=== PATIENT | female | born 1955 | race Caucasian/White ===

== ENCOUNTER 2022-08-30 11:57 | Emergency (ER) | payer OTHER, SELFPAY ==
[2022-08-30 12:02] VITALS: BP 189/92; PULSE 88; RESP 20; TEMP 36.3; O2SAT 93; BMI 43.9
--- NOTE | 2022-08-30 12:15 | CRLHL7_ITS ---
For Patients: As a result of the Cures Act, medical imaging exams and procedure reports are released immediately into your electronic medical record. You may view this report before your referring provider. If you have questions, please contact your health care provider. INDICATION: Shortness of breath TECHNIQUE: Chest 1 view. COMPARISON: None FINDINGS: The heart is normal in size. The pulmonary vasculature is within normal limits. The lungs are clear. Bones are unremarkable. IMPRESSION: No acute process. Dictated by Lindsey Lerma MD @ 08/30/2022 12:46:24 PM Dictated by: Lindsey Lerma MD @ 08/30/2022 12:46:40 (Electronically Signed)
[2022-08-30] MEDS: IPRAT-ALBUT 0.5-2.5 MG/3 ML NEB 1 NEB IH (12:21)
--- NOTE | 2022-08-30 12:39 | ED.GENADULT ---
HPI - General Adult General Date Seen: 08/30/22 Chief complaint: Cough Stated complaint: Difficulty breathing Time Seen by Provider: 08/30/22 12:04 Source: patient History of Present Illness HPI narrative: Patient is a 66-year-old woman who has had a cough for the past 4- 5 days, has developed some shortness of breath now as well. She says she a fever the 1st day, she had a Z-Larry laying around at home so she started that. She is on her last day of the Z-Larry and really has not helped. She is coughing up some sputum, has not had chest pain aside from that associated with coughing. No pleuritic chest pain. No unusual swelling in her legs. Her daughter was sick with some cold symptoms but they only lasted a day. She has not had any other ill exposures. She has taken 2 COVID test at home which were negative. She has a history of tobacco use but quit 9 years ago. She does not use any inhalers at baseline. Related Data Home Medications Medication Instructions Recorded Confirmed levothyroxine 13 mcg capsule 13 mcg PO QDAY 06/26/22 06/26/22 lisinopril 5 mg tablet 5 mg PO QDAY 06/26/22 06/26/22 pravastatin 10 mg tablet 10 mg PO QDAY 06/26/22 06/26/22 hydrochlorothiazide 25 mg tablet mg 08/30/22 Allergies Allergy/AdvReac Type Severity Reaction Status Date / Time erythromycin base Allergy Mild Hives Verified 06/26/22 10:32 penicillin V Allergy Mild Hives Verified 06/26/22 10:32 Sulfa drugs Allergy Mild Hives Uncoded 06/26/22 10:32 Review of Systems Status of ROS: Reports: 10 or more systems reviewed and unremarkable except as noted in History and below [facility] Social History Smoking Status: Former smoker Exam Narrative: Exam Narrative: Vital signs as noted above. In general, an alert, well-appearing patient. Head: Normocephalic, atraumatic. Eyes: Pupils are equal reactive. Extraocular movements are full. Conjunctivae are normal. ENT: Mucous membranes are moist. Throat is normal. Coarse upper airway congestion. Neck: Supple without lymphadenopathy. No stridor. Heart: Regular rate and rhythm. No murmur or rub. Lungs: Breath sounds are clear but decreased. Extremities: Well perfused. No edema. No calf tenderness. Pulses intact. Neurologic: Patient is alert and oriented to person and place. Speech is fluent. Face is symmetric. Moves all extremities equally. Affect: Normal. Skin: Warm and dry. Well perfused. Const: Vital Signs, click to edit/add: Vital Signs - 24 hr 08/30/22 12:02 Temperature 97.4 F L Pulse Rate [Pulse Oximeter] 88 Respiratory Rate 20 Blood Pressure [Ri ght Upper Arm] 189/92 H Pulse Oximetry 93 Oxygen Delivery Me thod Room Air Documenting provider has reviewed patient's vital signs: yes Course Course Hospital Course: One-view chest x-ray by my review is negative for infiltrate or other acute abnormality. Final radiology report Vital Signs Vital signs: Initial Vital Signs Temperature 97.4 F L 08/30/22 12:02 Temperature Source Temporal Artery Scan 08/30/22 12:02 Pulse Rate 88 08/30/22 12:02 Respiratory Rate 20 08/30/22 12:02 Blood Pressure 189/92 H 08/30/22 12:02 Blood Pressure Mean 124 08/30/22 12:02 Blood Pressure Position Sitting 08/30/22 12:02 Pulse Oximetry 93 08/30/22 12:02 Oxygen Delivery Method 08/30/22 12:02 Vital Signs Temperature 97.4 F L 08/30/22 12:02 Pulse Rate 88 08/30/22 12:02 Respiratory Rate 20 08/30/22 12:02 Blood Pressure 189/92 H 08/30/22 12:02 Pulse Oximetry 93 08/30/22 12:02 Oxygen Delivery Method 08/30/22 12:02 Temperature 97.4 F L 08/30/22 12:02 Pulse Rate 88 08/30/22 12:02 Respiratory Rate 20 08/30/22 12:02 Blood Pressure 189/92 H 08/30/22 12:02 Pulse Oximetry 93 08/30/22 12:02 Oxygen Delivery Method 08/30/22 12:02 Discharge Plan Discharge Clinical Impression: Bronchitis Patient Disposition: Home, Self-Care Condition: Improved Instructions: Acute Bronchitis (ED) Additional Instructions: Inhaler as prescribed. Prednisone x5 days. Follow-up with your primary doctor if not improving over the next couple of days, or if still symptomatic in a couple of weeks. Return at any time for worsening difficulty breathing or if fever returns. Bronchitis is viral, you do not need additional antibiotics. Prescriptions: No Action lisinopril 5 mg tablet 5 mg PO QDAY levothyroxine 13 mcg capsule 13 mcg PO QDAY pravastatin 10 mg tablet 10 mg PO QDAY hydrochlorothiazide 25 mg tablet Follow Up/Referrals: Jenny Hightower DO [Primary Care Provider] - Stand Alone Forms: [employer] Info Instructions
[2022-08-30] MEDS: predniSONE 20 MG TABLET 60 MG PO (13:38)
[2022-08-30] MEDS: ALBUTEROL SULFATE 2.5 MG/3 ML VIAL.NEB NEB (13:56)
== END 2022-08-30 13:50 | disposition home or self-care (01) ==
PROVIDERS: Emergency Provider Emergency Medicine; PCP Family Medicine
DX: J40 Bronchitis, not specified as acute or chronic (principal)
CPT/HCPCS: 71045; 94640; 99283; J7512

== ENCOUNTER 2024-03-23 07:36 | Emergency (ER) | payer OTHER, SELFPAY ==
[2024-03-23] VITALS (7 sets, daily range): BP systolic 146; BP diastolic 70; PULSE 81–92; RESP 20–24; TEMP 36.6; O2SAT 85–98; BMI 45.0
--- NOTE | 2024-03-23 07:52 | CRLHL7_ITS ---
For Patients: As a result of the Century Cures Act, medical imaging exams and procedure reports are released immediately into your electronic medical record. You may view this report before your referring provider. If you have questions, please contact your health care provider. Indication: Cough Technique: Chest 1 view Comparison: None Findings/Impression: Cardiovascular and mediastinum: Heart size and vasculature are normal in caliber and appearance. Lungs and pleural space: Lungs are clear. No sign of infiltrate or mass. No sign of pleural effusion. No pneumothorax. Bones and soft tissues: No acute findings. Dictated by Tucker Vazquez MD @ 03/23/2024 8:19:30 AM (Electronically Signed)
--- NOTE | 2024-03-23 08:03 | ED.GENADULT ---
HPI - General Adult General Chief complaint: Shortness of Breath/Dyspnea Stated complaint: Trouble breathing Time Seen by Provider: 03/23/24 07:42 History of Present Illness HPI narrative: Patient is a pleasant 68 year white female who has had a history of smoking for 40 years but quit 10 years ago, who presents with shortness of breath and a cough over the last few days. She has had a similar episode in August of 2022. She responded well to antibiotics and steroids. She has not been told she has asthma or emphysema. She did have an O2 sat in the 70% range when her daughter who is a nurse got there today to her house, but with an inhaler that she got from [place] it seemed to improved to the 90% range. She has had a nonproductive cough, no chest pain, no shortness of breath really at rest but was short of breath with exertion more, she has had no lower extremity swelling or edema, no bleeding or clotting problems . she is really quite active. She appears to have history of hypertension and hypercholesterolemia and hypothyroidism. Related Data Home Medications ?Medication ?Instructions ?Recorded ?Confirmed levothyroxine 13 mcg capsule 13 mcg PO QDAY 06/26/22 06/26/22 lisinopril 5 mg tablet 5 mg PO QDAY 06/26/22 06/26/22 pravastatin 10 mg tablet 10 mg PO QDAY 06/26/22 06/26/22 hydrochlorothiazide 25 mg tablet mg 08/30/22 Previous Rx's ?Medication ?Instructions ?Recorded albuterol sulfate 90 mcg/actuation 2 inh inhalation Q4-6H PRN #1 ea 03/23/24 breath activated powder inhaler doxycycline hyclate 100 mg capsule 100 mg PO BID #14 caps 03/23/24 prednisone 20 mg tablet 20 mg PO BID 5 days #10 tabs 03/23/24 Allergies Allergy/AdvReac Type Severity Reaction Status Date / Time erythromycin base Allergy Mild Hives Verified 03/23/24 09:29 penicillin V Allergy Mild Hives Verified 03/23/24 09:29 Sulfa drugs Allergy Mild Hives Uncoded 03/23/24 09:29 Review of Systems Status of ROS: Reports: 6 or more systems reviewed and unremarkable except as noted in History and below PFSH PFS Social History Smoking Status: Former smoker Non-prescribed substance use: denies use service: No Exam Narrative: Exam Narrative: Objective: Patient is afebrile O2 sat is 85% on room air Alert orient x3, noncyanotic, now on oxygen O2 sats in the mid 90% range HEENT is unremarkable no facial asymmetry Dry mucous membranes Neck is supple Chest diminished air exchange bilaterally no obvious rales or route wheezes Heart rhythm regular with 2/6 systolic murmur occasional ectopic beat Abdomen obese benign nontender Extremities are no edema neurologic nonfocal good peripheral perfusion noted. Const: Vital Signs, click to edit/add: Vital Signs - 24 hr 03/23/24 07:43 03/23/24 07:51 03/23/24 08:15 Temperature 97.9 F Pulse Rate Pulse Rate [Pulse Oximeter] 81 Respiratory Rate 24 20 Blood Pressure [Ri ght Upper Arm] 146/70 H Pulse Oximetry 85 L 85 L 98 Oxygen Delivery Me thod Room Air Nasal Cannula Nasal Cannula Oxygen Flow Rate 2 1 03/23/24 08:42 03/23/24 09:00 03/23/24 09:30 Temperature Pulse Rate 87 92 90 Pulse Rate [Pulse Oximeter] Respiratory Rate Blood Pressure [Ri ght Upper Arm] Pulse Oximetry 98 95 97 Oxygen Delivery Me thod Oxygen Flow Rate 03/23/24 10:00 Temperature Pulse Rate Pulse Rate [Pulse Oximeter] Respiratory Rate 20 Blood Pressure [Ri ght Upper Arm] Pulse Oximetry 93 Oxygen Delivery Me thod Room Air Oxygen Flow Rate Course Vital Signs Vital signs: Initial Vital Signs Temperature 97.9 F 03/23/24 07:43 Temperature Source Temporal Artery Scan 03/23/24 07:43 Pulse Rate 81 03/23/24 07:43 Respiratory Rate 24 03/23/24 07:43 Blood Pressure 146/70 H 03/23/24 07:43 Blood Pressure Mean 95 03/23/24 07:43 Blood Pressure Position Supine 03/23/24 07:43 Pulse Oximetry 85 L 03/23/24 07:43 Oxygen Delivery Method Room Air 03/23/24 07:43 Vital Signs Temperature 97.9 F 03/23/24 07:43 Pulse Rate 81 03/23/24 07:43 Respiratory Rate 03/23/24 07:43 Blood Pressure 146/70 H 03/23/24 07:43 Pulse Oximetry 85 L 03/23/24 07:43 Oxygen Delivery Method Room Air 03/23/24 07:43 Temperature 97.9 F 03/23/24 07:43 Pulse Rate 90 03/23/24 09:30 Respiratory Rate 20 03/23/24 10:00 Blood Pressure 146/70 H 03/23/24 07:43 Pulse Oximetry 93 03/23/24 10:00 Oxygen Delivery Method Room Air 03/23/24 10:00 Oxygen Flow Rate 1 03/23/24 08:15 Medications Administered Medications: Discontinued Medications Generic Name Dose Route Start Last Admin Trade Name Carlos PRN Reason Stop Dose Admin Albuterol/Ipratropium 1 neb 03/23/24 08:00 03/23/24 08:24 Iprat-Albut 0.5-2.5 Mg/3 Ml Neb IH 03/23/24 08:01 1 neb ONCE ONE Administration Doxycycline Hyclate 100 mg/ 100 mls @ 100 mls/hr 03/23/24 08:02 03/23/24 10:10 Sodium Chloride IVPB 03/23/24 08:03 Infused ONCE ONE Infusion Methylprednisolone Sodium Succinate 125 mg 03/23/24 08:00 03/23/24 08:24 Methylprednisolone Sod Succ 62.5 Mg/Ml (125) IVP 03/23/24 08:01 125 mg ONCE ONE Administration Medical Decision Making MDM Narrative Medical decision making narrative: [age] year white female was a long-term smoker but quit about a decade ago, presents with what sounds like a cough, progressive shortness of breath, COPD eggs type exacerbation. The patient will get a D-dimer, labs, electrolytes, chest x-ray, EKG, point of care troponin, IV fluids, IV steroids, IV antibiotic. Will get a DuoNeb as well. Disposition pending her clinical response in her O2 sat readings. Suspect this is more COPD like exacerbation with her cough and congestion and shortness of breath. She has had similar episodes in the past. She reports also she is not around any allergens or toxins or fumes or smoke. She is quite active goes to [employer] couple times a week. Addendum 9:46 a.m.: Patient's EKG shows normal sinus rhythm artifact present but no obvious ST T wave changes by my read. The patient's CT scan of the chest shows some bronchitis changes with mucosal thickening, but no dense consolidation consistent with pneumonia. I think a steroids, inhaler, antibiotics would be appropriate for home. Patient is feeling better after her nebulizer and treatments above. I think we can allow her to be discharged home if she can walk with a reasonable O2 sat . Addendum 10:00 a.m. the patient was able to maintain her O2 sats, she will be discharged home. Lab Data Labs: Lab Results 03/23/24 03/23/24 03/23/24 Range/Units 07:52 08:05 08:10 WBC 9.38 (4.50-11.00) K/uL RBC 5.42 H (4.00-5.20) m/uL Hgb 14.8 (12.0-16.0) gm/dL Hct 47.5 (33.0-51.0) % MCV 88 (80-100) fL MCH 27 (26-34) pg MCHC 31 L (32-36) gm/dL RDW Coeff of Sonia 15.1 (11.5-15.5) % Plt Count 304 (140-440) K/uL Neut % (Auto) 56.8 (42.0-72.0) % Lymph % (Auto) 31.9 (20-44) % [place] % (Auto) 8.6 (0.0-11.0) % Eos % (Auto) 1.8 (0.0-7.0) % Baso % (Auto) 0.6 (0.0-3.0) % Neut # (Auto) 5.32 (1.7-7.0) K/uL Lymph # (Auto) 2.99 H (0.90-2.90) K/uL [place] # (Auto) 0.80 (0.00-0.90) K/UL Eos # (Auto) 0.17 (0.00-0.50) K/uL Baso # (Auto) 0.06 (0.00-0.30) K/uL Abs Immat Gran (auto) 0.03 (0.00-0.30) K/uL Imm/Tot Granulo (auto) 0.3 % D-Dimer Quant (PE/DVT) 0.51 H (0.00-0.50) ug/ml VBG pH 7.394 (7.32-7.43) VBG pCO2 56 H (40-50) mmHG VBG pO2 < 30.1 (25-47) mmHG VBG HCO3 34 H (21-28) mmol/L Sodium 139 (135-149) mmol/L Potassium 3.7 (3.6-5.1) mmol/L Chloride 100 (96-114) mmol/L Carbon Dioxide 34 H (20-32) mmol/L Anion Gap 5 L (7-15) mEq/L BUN 22 (7-30) mg/dL Creatinine 0.8 (0.5-1.5) mg/dL Estimated Creat Clear 41.99 Estimated GFR 80 ml/min Glucose 96 (60-115) mg/dL Calcium 8.9 (8.4-10.6) mg/dL Total Bilirubin 0.8 (0.1-1.5) mg/dL Direct Bilirubin 0.4 (0.0-0.5) mg/dL AST 31 (12-35) U/L ALT 66 H (4-35) U/L Alkaline Phosphatase 78 (40-150) U/L C-Reactive Protein < 0.5 L (0.5-1.0) mg/dL NT-Pro-B Natriuret Pep 176 pg/mL Total Protein 7.1 (6.0-8.3) g/dL Albumin 4.3 (3.3-5.0) g/dL SARS-CoV-2 (PCR) Negative SARS-CoV-2 (Negative) Influenza Type A (PCR) Negative PCR FLU A (Negative) Influenza Type B (PCR) Negative PCR FLU B (Negative) RSV (PCR) Negative PCR RSV (Negative) POC Troponin I 0.00 L (0.01-0.04) ng/ml Discharge Plan Discharge Clinical Impression: Bronchitis, Acute bronchospasm Patient Disposition: Home w/ Parent or Adult Condition: Improved Additional Instructions: Rest, fluids, antibiotics and steroids and the inhaler as prescribed. Follow-up with your regular doctor next 2 3 days, return to the ED if problems or concerns breathing. Discharge Diet: Regular Prescriptions: New doxycycline hyclate 100 mg capsule 100 mg PO BID Qty: 14 0RF albuterol sulfate 90 mcg/actuation aerosol powdr breath activated 2 inh inhalation Q4-6H PRNQty: 1 0RF prednisone 20 mg tablet 20 mg PO BID 5 Days Qty: 10 0RF No Action lisinopril 5 mg tablet 5 mg PO QDAY levothyroxine 13 mcg capsule 13 mcg PO QDAY pravastatin 10 mg tablet 10 mg PO QDAY hydrochlorothiazide 25 mg tablet Follow Up/Referrals: Jenny Hightower DO [Primary Care Provider] - Stand Alone Forms: [employer] Info Instructions
[2024-03-23 08:13] LABS: HCO3 VBG 34 mmol/L (21-28); PCO2 VBG 56 mmHG (40-50); PO2 VBG < 30.1 mmHG (25-47); pH VBG 7.394 (7.32-7.43)
--- NOTE | 2024-03-23 08:13 | CRLHL7_ITS ---
For Patients: As a result of the Century Cures Act, medical imaging exams and procedure reports are released immediately into your electronic medical record. You may view this report before your referring provider. If you have questions, please contact your health care provider. Indication: Cough and shortness of breath Technique: Volumetric multidetector CT images of the chest were obtained after the administration of IV contrast. 95 cc Isovue 370 low osmolar intravenous contrast Comparison: None available. Findings: The thoracic inlet and thyroid gland are unremarkable. The thoracic aorta is nonaneurysmal. There is no central filling defect to suggest pulmonary embolism. There are enlarged mediastinal and hilar lymph nodes. There is mild central bronchial thickening with minimal mucoid impaction of lower lobe bronchi. There is minimal basilar atelectasis and parenchymal scar. There is no dense consolidation, effusion or pneumothorax. There is no evidence of pulmonary mass or suspicious pulmonary nodule. The partially visualized upper abdominal viscera are within normal limits. The thoracic vertebral body heights are grossly maintained with diffuse flowing anterior osteophytosis and syndesmophyte formation likely representing mild DISH versus bony ankylosis. No evidence of displaced fracture. Impression: [id number] central bronchial thickening with minimal mucoid impaction and reactive mediastinal and hilar lymph nodes likely representing mild bronchitis changes. No dense consolidation. Please note that all CT scans at this facility use dose modulation, iterative reconstruction, and/or weight-based dosing when appropriate to reduce radiation dose to as low as reasonably achievable. Dictated by Tre Craft MD @ 03/23/2024 9:38:55 AM (Electronically Signed)
[2024-03-23 08:23] LABS: Basophils Absolute Auto 0.06 K/uL (0.00-0.30); Basophils Percent Auto 0.6 % (0.0-3.0); Eosinophils Absolute Auto 0.17 K/uL (0.00-0.50); Eosinophils Percent Auto 1.8 % (0.0-7.0); Hematocrit 47.5 % (33.0-51.0); Hemoglobin* 14.8 gm/dL (12.0-16.0); Immature Granulocytes Abs Auto 0.03 K/uL (0.00-0.30); Immature Granulocytes Pct Auto 0.3 %; Lymphocytes Absolute Auto 2.99 K/uL (0.90-2.90); Lymphocytes Percent Auto 31.9 % (20-44); Mean Corpuscular HGB Conc 31 gm/dL (32-36); Mean Corpuscular Hemoglobin 27 pg (26-34); Mean Corpuscular Volume 88 fL (80-100); Monocytes Percent Auto 8.6 % (0.0-11.0); Neutrophils Absolute Auto 5.32 K/uL (1.7-7.0); Neutrophils Percent Auto 56.8 % (42.0-72.0); Platelet Count* 304 K/uL (140-440); RDW Coefficient of Variation % 15.1 % (11.5-15.5); Red Blood Count 5.42 m/uL (4.00-5.20); White Blood Count* 9.38 K/uL (4.50-11.00)
[2024-03-23] MEDS: DOXYCYCLINE HYCLATE 100 MG in 0.9 % SODIUM CHLORIDE Mini-bag 100 ML IVPB (08:24)
[2024-03-23] MEDS: IPRAT-ALBUT 0.5-2.5 MG/3 ML NEB 1 NEB IH (08:24)
[2024-03-23] MEDS: METHYLPREDNISOLONE SOD SUCC 62.5 MG/ML (125) 125 MG IVP (08:24)
[2024-03-23 08:30] LABS: Slide Review Reflex No
[2024-03-23 08:37] LABS: Albumin* 4.3 g/dL (3.3-5.0); Chloride* 100 mmol/L (96-114); Potassium* 3.7 mmol/L (3.6-5.1); Sodium* 139 mmol/L (135-149)
[2024-03-23 08:39] LABS: Creatinine* 0.8 mg/dL (0.5-1.5); Est. Creatinine Clearance* 41.99; Estimated Glomerular Filt Rate 80 ml/min
[2024-03-23 08:40] LABS: Alanine Aminotransferase* 66 U/L (4-35); Alkaline Phosphatase* 78 U/L (40-150); Anion Gap 5 mEq/L (7-15); Aspartate Amino Transferase* 31 U/L (12-35); Bilirubin Direct* 0.4 mg/dL (0.0-0.5); Bilirubin Total* 0.8 mg/dL (0.1-1.5); Blood Urea Nitrogen* 22 mg/dL (7-30); Carbon Dioxide* 34 mmol/L (20-32); Glucose* 96 mg/dL (60-115); Total Protein* 7.1 g/dL (6.0-8.3)
[2024-03-23 08:41] LABS: Calcium* 8.9 mg/dL (8.4-10.6); D Dimer Quantitative* 0.51 ug/ml (0.00-0.50)
[2024-03-23 08:53] LABS: C Reactive Protein* < 0.5 mg/dL (0.5-1.0); NT Pro B Type NatriureticPept* 176 pg/mL
[2024-03-23 08:59] LABS: PCR FLU A Negative PCR FLU A (Negative); PCR FLU B Negative PCR FLU B (Negative); PCR RSV Negative PCR RSV (Negative); SARS PCR* Negative SARS-CoV-2 (Negative)
--- NOTE | 2024-03-23 08:59 | RESP.RT ---
DuoNeb given with small volume nebulizer, Oxygen flow meter at 7 Lpm, with mouth piece. Tolerated well. Pre-BBS clear diminished both upper lobes, bases had very slight expiratory wheeze noted. HR 81/minute, VSS during treatment. Post-BBS upper lobes fair air movement, Left lower lobe no wheeze noted, Right base slight expiratory wheeze remained. Patient able to take larger breathe post treatment. Returned to [place] 1 Lpm with SaO2 98%.
== END 2024-03-23 10:09 | disposition home or self-care (01) ==
PROVIDERS: Emergency Provider Family Medicine; PCP Family Medicine
DX: J40 Bronchitis, not specified as acute or chronic (principal); J98.01 Acute bronchospasm
CPT/HCPCS: 36415; 71045; 71275; 80048; 80076; 82803; 83880; 84484; 85025; 85379; 86140; 87631; 93005; 94640; 94761; 99284; 99285; J2919; Q9967

== ENCOUNTER 2024-05-10 17:07 | Emergency (ER) | payer OTHER, SELFPAY ==
[2024-05-10 17:42] VITALS: BP 163/87; PULSE 83; RESP 18; TEMP 36.7; O2SAT 94
--- NOTE | 2024-05-10 18:36 | ED.GENADULT ---
HPI - General Adult General Chief complaint: Extremity Pain/Injury, Lower Stated complaint: L knee-pain getting unbearable even sitting Time Seen by Provider: 05/10/24 18:01 Source: patient Mode of arrival: wheelchair Limitations: no limitations History of Present Illness HPI narrative: 68-year-old female coming in today complaining of knee pain. Knee pain started approximately 2 months ago. She has been followed at [facility] and has received both steroid injections and gel injections. She states that her pain has continuously gotten worse instead of better. She did bump her anterior lower leg, which treated with antibiotics. This was 4 weeks ago. This appears to be healing well. Patient went to the orthopedic team again this week and was given cefadroxil for ?potential cellulitis and meloxicam for pain. Patient states that imaging was not recommended. She has had x-rays before and was told she had arthritis. Patient denies any systemic symptoms such as fevers, chills, nausea or vomiting. She denies any redness of the left lower extremity. She states however, that her pain is so significant now that she can not do her activities of daily living. Her daughter has to come over and help her. Pain is located over the medial knee, does not radiate up and down the leg. Rest use to make it better, but now she even has pain at rest. Pain is exacerbated with movement, specifically walking and weight-bearing. Related Data Home Medications ?Medication ?Instructions ?Recorded ?Confirmed levothyroxine 13 mcg capsule 13 mcg PO QDAY 06/26/22 06/26/22 lisinopril 5 mg tablet 5 mg PO QDAY 06/26/22 06/26/22 pravastatin 10 mg tablet 10 mg PO QDAY 06/26/22 06/26/22 hydrochlorothiazide 25 mg tablet mg 08/30/22 Previous Rx's ?Medication ?Instructions ?Recorded albuterol sulfate 90 mcg/actuation 2 inh inhalation Q4-6H PRN #1 ea 03/23/24 breath activated powder inhaler doxycycline hyclate 100 mg capsule 100 mg PO BID #14 caps 03/23/24 prednisone 20 mg tablet 20 mg PO BID 5 days #10 tabs 03/23/24 Allergies Allergy/AdvReac Type Severity Reaction Status Date / Time erythromycin base Allergy Mild Hives Verified 03/23/24 09:29 penicillin V Allergy Mild Hives Verified 03/23/24 09:29 Sulfa drugs Allergy Mild Hives Uncoded 03/23/24 09:29 Review of Systems Status of ROS: Reports: 10 or more systems reviewed and unremarkable except as noted in History and below [facility] Medical History Hypertension ?I10 - Essential (primary) hypertension (ICD-10) High cholesterol ?E78.00 - Pure hypercholesterolemia, unspecified (ICD-10) Hypothyroidism ?E03.9 - Hypothyroidism, unspecified (ICD-10) Arthritis ?M19.90 - Unspecified osteoarthritis, unspecified site (ICD-10) Social History Smoking Status: Former smoker Do you use any of these nicotine containing products: None Second hand tobacco smoke exposure: No How often do you have a drink containing alcohol: never AUDIT-C Alcohol total score: 0 Non-prescribed substance use: denies use service: No Exam Narrative: Exam Narrative: Obese, well-developed patient in mild distress, slightly anxious. Alert and oriented. Answers questions appropriately. Thoughts are goal oriented and rational. No tangential or magical thinking noted. Patient speaks in full sentences without needing to catch her breath. HEENT: Normocephalic atraumatic. Extraocular muscles are intact. Conjunctivae are moist without any icterus noted. Moist mucous membranes. Extremities: Right lower extremity is entirely normal. Left lower extremity does have trace edema from the knee all the way down to the ankle. Patient does not have significant tenderness to palpation of the knee, no significant tenderness to the lateral or medial joint lines. There is no redness or heat surrounding the knee or lower extremity. She does have a a healing scab of the anterior lower leg that does not appear infected and appears to be healing appropriately. Patient is able to flex and fully extend her knee, causes her discomfort but not enough to decrease her range of motion. She has no pain with compression of the patella. There is no valgus or varus laxity. Charmaine's is negative. There does appear to be a joint effusion. Skin: Well perfused without any obvious rashes. Const: Vital Signs, click to edit/add: Vital Signs - 24 hr 05/10/24 17:42 Temperature 98.0 F Pulse Rate [Left P ulse Oximeter] 83 Respiratory Rate 18 Blood Pressure [Ri ght Forearm] 163/87 H Pulse Oximetry 94 Oxygen Delivery Me thod Room Air Course Course ED Course: X-rays were done: Vital Signs Vital signs: Initial Vital Signs Temperature 98.0 F 05/10/24 17:42 Temperature Source Temporal Artery Scan 05/10/24 17:42 Pulse Rate 83 05/10/24 17:42 Pulse Rhythm Regular 05/10/24 17:42 Respiratory Rate 18 05/10/24 17:42 Blood Pressure 163/87 H 05/10/24 17:42 Blood Pressure Mean 112 H 05/10/24 17:42 Blood Pressure Position Sitting 05/10/24 17:42 Pulse Oximetry 94 05/10/24 17:42 Oxygen Delivery Method Room Air 05/10/24 17:42 Vital Signs Temperature 98.0 F 05/10/24 17:42 Pulse Rate 83 05/10/24 17:42 Respiratory Rate 18 05/10/24 17:42 Blood Pressure 163/87 H 05/10/24 17:42 Pulse Oximetry 94 05/10/24 17:42 Oxygen Delivery Method Room Air 05/10/24 17:42 Temperature 98.0 F 05/10/24 17:42 Pulse Rate 83 05/10/24 17:42 Respiratory Rate 18 05/10/24 17:42 Blood Pressure 163/87 H 05/10/24 17:42 Pulse Oximetry 94 05/10/24 17:42 Oxygen Delivery Method Room Air 05/10/24 17:42 Medical Decision Making MDM Narrative Medical decision making narrative: 68-year-old female with knee pain worsening for 2 months. Send the patient home on prednisone and Haines. Patient will follow-up with our orthopedic team. Discharge Plan Discharge Clinical Impression: Knee pain Patient Disposition: Home, Self-Care Condition: Stable Additional Instructions: Take all steroid as prescribed. Take pain medication as needed. Side effects of pain medication include constipation, sleepiness or dizziness. You will be provided the phone number to call our orthopedic team in the morning. Mention that you are scheduling an ER follow-up appointment. Medications sent to [facility]. Haines #8 tabs. Prednisone 40 mg daily x5 days. Prescriptions: No Action lisinopril 5 mg tablet 5 mg PO QDAY levothyroxine 13 mcg capsule 13 mcg PO QDAY pravastatin 10 mg tablet 10 mg PO QDAY hydrochlorothiazide 25 mg tablet doxycycline hyclate 100 mg capsule 100 mg PO BID Qty: 14 0RF albuterol sulfate 90 mcg/actuation aerosol powdr breath activated 2 inh inhalation Q4-6H PRNQty: 1 0RF prednisone 20 mg tablet 20 mg PO BID 5 Days Qty: 10 0RF Follow Up/Referrals: Jenny Hightower DO [Primary Care Provider] - Stand Alone Forms: [facility] Info Instructions
--- NOTE | 2024-05-10 18:40 | CRLHL7_ITS ---
For Patients: As a result of the Cures Act, medical imaging exams and procedure reports are released immediately into your electronic medical record. You may view this report before your referring provider. If you have questions, please contact your health care provider. INDICATION: Medial knee pain. TECHNIQUE: Left knee three views. COMPARISON: None. FINDINGS: No acute fracture or dislocation. Mild medial and patellofemoral compartment degenerative changes, with mild medial compartment narrowing. No additional osseous abnormality. Soft tissues as imaged are unremarkable. IMPRESSION: No acute osseous abnormality. Dictated by Drake Kan MD @ 05/10/2024 8:34:00 PM (Electronically Signed)
== END 2024-05-10 20:39 | disposition home or self-care (01) ==
PROVIDERS: Emergency Provider Family Medicine; PCP Family Medicine
DX: M25.562 Pain in left knee (principal)
CPT/HCPCS: 73562; 99283; 99284

== ENCOUNTER 2024-05-23 13:59 | Outpatient (CLI) | payer MEDICARE, SELFPAY ==
--- NOTE | 2024-05-23 14:45 | MR_ITS ---
[facility] [address] [facility] [address] Phone:?[phone] Fax:?[phone] Referring Physician Information: Jose Barnhart [address] [facility] [address] Phone:?[phone] Fax:?[phone] Patient:Beatris Downing D.O.B:?1955 Sex:?Female Phone:?[phone] [facility] MRN:?[id number] Exam Date:?05/23/2024 EXAM: MRI of the LEFT KNEE, without contrast CLINICAL HISTORY: Ongoing left knee pain. Evaluate for medial meniscal tear. COMPARISONS: Plain radiographs 05/12/2024 and 05/10/2024. TECHNICAL: MR sequences of the left knee: sagittals: PD, T2 FS coronals: PD, STIR, T2 axials: PD, T2 FS CONTRAST: None SEDATION: None FINDINGS: Bones: No fracture or suspicious bone marrow signal abnormality. Patellofemoral joint: Cartilage: Diffuse grade II and III chondromalacia over all portions of patella and extensive grade IV chondromalacia over the superior portions of the median patellar ridge and median patellar ridge-medial patellar facet junction with slight associated subchondral cystic changes. Retinacula: The medial and lateral retinacula are intact. Fat pads: The infrapatellar, quadriceps, and prefemoral fat pads are unremarkable. Knee joint: Effusion: Moderate left knee joint effusion. Popliteal cyst: None. Intra-articular bodies: None. Posteromedial corner: The semimembranosus and pes anserine tendons are intact. Medial compartment: Medial meniscus: There is full-thickness radial tear through the mid body of the medial meniscus measuring 1.0 cm in AP dimension. There is free edge fraying versus ill-defined free edge tearing of most of the posterior horn of the medial meniscus. Cartilage: There is diffuse grade III chondromalacia over most of the weightbearing portion of the medial femoral condyle. Lateral compartment: Lateral meniscus: Intact. Cartilage: 1.0 x 1.0 cm area of grade II chondromalacia over the posterior portion of the lateral tibial plateau. Ligaments: Anterior cruciate ligament: Intact. Posterior cruciate ligament: Intact. Medial collateral ligament: Intact. Posterior oblique ligament: Intact. Fibular collateral ligament: Intact. Posterolateral corner: The distal biceps femoris tendon, iliotibial band, popliteus tendon, popliteus muscle, popliteofibular ligament, and arcuate ligament are intact. Extensor mechanism: Patellar tendon: Intact. Quadriceps tendon: Intact. IMPRESSION: 1. Full-thickness radial tear through the mid body of the medial meniscus measuring 1.0 cm in AP dimension. Free edge fraying versus ill-defined free edge tearing of most of the posterior horn of the medial meniscus. 2. Diffuse grade III chondromalacia over most of the weightbearing portion of the medial femoral condyle. 3. Diffuse grade II and III chondromalacia over all portions of patella and extensive grade IV chondromalacia over the superior portions of the median patellar ridge and median patellar ridge-medial patellar facet junction with slight associated subchondral cystic changes. 4. 1.0 x 1.0 cm area of grade II chondromalacia over the posterior portion of the lateral tibial plateau. 5. Moderate left knee joint effusion. 6. No ligamentous injury or lateral meniscal tear of the left knee. RCB Electronically signed on 05/23/2024 4:04:00 PM by Billy Holden M.D.
== END 2024-05-23 14:00 | disposition home or self-care (01) ==
PROVIDERS: PCP Family Medicine; Visit Provider Physician Assistant Surgical
DX: M25.562 Pain in left knee (principal); S83.242A Other tear of medial meniscus, current injury, left knee, initial encounter; M94.262 Chondromalacia, left knee; M22.42 Chondromalacia patellae, left knee; M25.462 Effusion, left knee
CPT/HCPCS: 73721

== ENCOUNTER 2024-06-22 10:30 | Outpatient (RCR) | payer MEDICARE, SELFPAY ==
--- NOTE | 2024-05-30 15:14 | PT.OPEX ---
PT [place] Out[facility] Eval PT [facility] Outpatient Eval Start: 05/30/24 07:48 Freq: Status: Active Protocol: Document 05/30/24 07:48 ENM (Rec: 05/30/24 10:45 ENM [id number]) E-signed By Carmelina Jean, DPT Physical Therapy Outpatient Evaluation Insurance Information Recert Due Date 08/28/24 Insurance Name Medicare B Medical Diagnosis left knee pain Treating Diagnosis left knee pain, impaired gait, impaired balance, decreased knee strength, swelling Imaging Report Information Xray: moderate osteoarthritic change primarily medial compartment with joint space narrowing of 50-60%, osteophytosis medial femoral distal condyle MRI: 1. Full-thickness radial tear through the mid body of the medial meniscus measuring 1.0 cm in AP dimension. Free edge fraying versus ill- defined free edge tearing of most of the posterior horn of the medial meniscus. 2. Diffuse grade III chondromalacia over most of the weightbearing portion of the medial femoral condyle. 3. Diffuse grade II and III chondromalacia over all portions of patella and extensive grade IV chondromalacia over the superior portions of the median patellar ridge and median patellar ridge-medial patellar facet junction with slight associated subchondral cystic changes. 4. 1.0 x 1.0 cm area of grade II chondromalacia over the posterior portion of the lateral tibial plateau. 5. Moderate left knee joint effusion. 6. No ligamentous injury or lateral meniscal tear of the left knee. Referring MD Tong Subjective Subjective Patient presents to PT for complaint of left knee pain that started in February. Has had a corticosteroid injection February 2024 and viscosupplementation injection March 2024. Had no relief of symptoms with the injections. Her pains have continued to significant increase over the last couple of months. Was given tramadol which did not seem to help. Is taking tylenol and icing. The only thing that gave her relief is prednisone. She feels like there is swelling in the knee. She has been elevating the leg with a wedge and icing which helps while she does it but this doesn't last. She has a visit with Nicholas on . When it started: February Describes it as: significant pain Timing: pain all the time Location: medial knee pain and now anterior Irritability: high Severity: high Pain Comments at its best: 7/10 at its worse: 10/10 easing: sitting, tylenol, aggravating: all mobility Current Work Status Retired Objective Other/Pertinent Objective Knee AROM L knee 0-6-103 (stretch at end range knee flexion and pain at end range knee ext) R knee 2-0-110 Strength: Knee extensors: fair quad set very painful when performing Palpation/joint mobility: + for pain palpating medial joint line, tibial tubercle, patellar tendon Gait/balance: Patient ambulates with antalgic gait pattern, wide TAMAR Swelling: superior knee cap L 53 cm R 49 cm Joint line L 45 cm R 44 cm base of knee cap L 43 cm R 41. 5 Limited evaluation due to significant levels of pain Assessment Assessment/Impression Patient is a 68 year old female presenting with 3 month history of significant knee pain. Their primary complaint is of increasing significant levels of pain that were brought on without an injury. She has tried two injections and multiple medications with minimal pain relief. She had slight relief of pains with prednisone and has been able to bring the pains down to a moderate level with ibuprofen/ tylenol with icing. Recent MRI showed full thickness radial tear of medial meniscus as well as chondromalacia. Patient was very limited with her evaluation due to significant pain levels. She has significant knee pain with almost all mobility. Knee pain increases with knee extension and loading of the joint with ambulation. She displays global swelling of 2- 3 cm compared to contralateral side. She is very tender to palpation along her medial joint line. Pains improved some with KT taping and use of a 2WW to help offload her left knee. Patient has an appointment with Deny on of this week, will update POC depending on medical management plan. Eliana would greatly benefit from skilled PT to address impairments stated above in order to perform all functional mobility and household duties without significant discomfort or difficulty. Primary Functional Limitations all functional mobility Plan of Care Rehabilitation Potential Fair Rehabilitation Potential Comments Fair due to length of symptoms , extent of tearing in her meniscus and severity of symptoms Physical Therapy Goals In 7-9 visits: 1. Patient will be IND with HEP and self management of symptoms 2. Patient will improve pain free knee ROM to 0-0-110 for improved gait mechanics 3. Patient will perform x10 SLR with minimal discomfort to demonstrate improvements in quad strength for gait 4. Patient will make it through the day with 5/10 or less pain demonstrating an improvement in activity tolerance 5. Patient will perform her household duties without an increase in knee swelling to progress toward PLOF Coordination/Communication With Referral Source Treatment Plan/Direct Interventions Gait Training,Heat,Ice/Cold/ Vasopneumatic,Joint Mobilization,Manual Therapy, Neuromuscular Re-ed,Self-Care/ Home Management,Therapeutic Activities,Therapeutic Exercises Frequency/Duration 1x a week for 7-9 visits Patient Will Be Discharged From Therapy Completion of LTG(s), Independent w/HEP Evaluation Billing Untimed Code Treatment Minutes 21 Complexity High Certification Information Initial Certification Date 05/30/24 Ending Certification Date 08/28/24 Provider Signature Required Yes Provider Signature Shows Agreement With POC & Medical Necessity Physician NPI Number Write NPI# Here Physician Comment/Change : Physician Signature & Date Requested Please Sign/Date Here
== END 2024-09-13 10:15 | disposition home or self-care (01) ==
PROVIDERS: PCP Family Medicine; Visit Provider Physician Assistant Surgical
DX: M25.562 Pain in left knee (principal); R26.9 Unspecified abnormalities of gait and mobility; R26.81 Unsteadiness on feet; R60.9 Edema, unspecified; Z51.89 Encounter for other specified aftercare
CPT/HCPCS: 97110; 97140; 97163; 97530

== ENCOUNTER 2024-08-09 10:23 | Day surgery (SDC) | payer MEDICARE, SELFPAY ==
[2024-08-09] VITALS (21 sets, daily range): BP systolic 101–149; BP diastolic 45–92; PULSE 62–89; RESP 16; TEMP 35.7–36.9; O2SAT 91–98; BMI 47.7
[2024-08-09] MEDS: SODIUM CHLORIDE 0.9 % (FLUSH) 10 ML SYRINGE IVF (10:55)
[2024-08-09] MEDS: LACTATED RINGERS 1000 ML 1,000 ML 100 ML IV (10:55)
[2024-08-09] MEDS: CELECOXIB 200 MG CAPSULE PO (10:56)
[2024-08-09] MEDS: ACETAMINOPHEN 500 MG TABLET 1000 MG PO ×3 (10:56→23:29)
[2024-08-09] MEDS: OXYCODONE (CR) 10 MG TAB.ER.12H PO (10:56)
[2024-08-09] MEDS: fentaNYL 100 MCG/2 ML inj IVP (11:40)
[2024-08-09] MEDS: MIDAZOLAM HCL 1 MG/ML inj IVP (11:40)
--- NOTE | 2024-08-09 12:02 | SUR.PREOP ---
TIME?OUT:?1140 PT/RN/MDA?VERIFICATION?OF?SURGICAL?SITE,?PROCEDURE,?AND?CONSENT OBTAINED?PRIOR?TO?INVASIVE?PROCEDURE.
[2024-08-09] MEDS: CEFAZOLIN 2 GM INJ IVP (12:15)
[2024-08-09] MEDS: TRANEXAMIC ACID 100 MG/ML INJ 1000 MG IV (12:20)
--- NOTE | 2024-08-09 12:36 | W.PM.NB ---
Nerve Block Nerve Block Time Seen by Provider: 11:45 Date Seen: 08/09/24 Type of block requested by surgeon for post-operative analgesia: adductor canal Side: left Time out performed: Yes Verification of patient name: Yes Verification of date of : Yes Site marking: site marked Name of person performing procedure: Jeanmarie Continuous monitoring Was continuous monitoring of O2 sat, B/P, cardiac nurse specialist, recorded every 15 minutes?: Yes Procedure Checklist: sterile prep, needles and gloves Ultrasound guided. Images saved: Yes Medications given in 5ml increments after negative aspiration: Marcaine %: 0.25 mL: 15 Needle gauge: 20 Precedex (mcg): 25 Patient tolerated procedure well: Yes Block Charges Block Charge (with Pro Fee): Femoral Nerve Use of Ultrasound Machine for Block: Yes- US Guidance/pain block
--- NOTE | 2024-08-09 12:37 | W.PM.NB ---
Nerve Block Nerve Block Time Seen by Provider: 11:45 Date Seen: 08/09/24 Type of block requested by surgeon for post-operative analgesia: geniculars Side: left Time out performed: Yes Verification of patient name: Yes Verification of date of : Yes Site marking: site marked Name of person performing procedure: Jeanmarie Continuous monitoring Was continuous monitoring of O2 sat, B/P, plumber cub, recorded every 15 minutes?: Yes Procedure Checklist: sterile prep, needles and gloves Ultrasound guided. Images saved: Yes Medications given in 5ml increments after negative aspiration: Marcaine %: 0.25 mL: 9 Needle gauge: 25 Patient tolerated procedure well: Yes Block Charges Block Charge (with Pro Fee): Genicular Nerve Block
--- NOTE | 2024-08-09 12:37 | W.ANESCHARGE ---
Anesthesia Charges Start Date/Time Anesthesia Start Date: 08/09/24 Anesthesia Start Time: 12:10 Stop Date/Time Anesthesia Stop Date: 08/09/24 Anesthesia Stop Time: 14:49
--- NOTE | 2024-08-09 14:13 | CRLHL7_ITS ---
For Patients: As a result of the Cures Act, medical imaging exams and procedure reports are released immediately into your electronic medical record. You may view this report before your referring provider. If you have questions, please contact your health care provider. Indication: Postop Technique: Two views left knee Findings/Impression: Hardware from a left total knee arthroplasty is in satisfactory position. Bone alignment is normal. No sign of acute fracture. Postop changes are within normal limits. Dictated by George Mendoza MD @ 08/10/2024 8:08:13 AM (Electronically Signed)
--- NOTE | 2024-08-09 14:16 | PM.ORPRC ---
Procedure Note Date of procedure: 08/09/24 Procedure: PREOPERATIVE DIAGNOSIS: Left knee osteoarthritis POSTOPERATIVE DIAGNOSIS: Left knee osteoarthritis NAME OF OPERATION: Left total knee arthroplasty SURGEON: Arjun Marrufo MD TRANSPORTATION AGENT: HUGO Johnson ANESTHESIA: Spinal ESTIMATED BLOOD LOSS: 0 mL COMPLICATIONS: None SPECIMENS: None DRAINS: None PREOPERATIVE ANTIBIOTICS: Ancef 2 grams, antibiotic impregnated cement IMPLANTS: 1. J[employer]J Attune revision CRS #4 posterior stabilized femur, 14 mm x 80 mm cemented stem 2. #3 revision CRS fixed-bearing tibia, 14 mm x 50 mm cemented stem 3. #6 posterior stabilized, 5 mm fixed-bearing polyethylene 4. 38 patella INDICATIONS: The patient is a 68-year-old with a longstanding history of severe, unrelenting left knee pain secondary to end-stage (grade IV) left knee osteoarthritis. Despite appropriate nonoperative management, including activity modification, anti-inflammatories, [id number]-usl-[id number] pain medication, bracing, physical therapy, and injections they continue to have pain and disability. Operative intervention was offered. The risks, benefits and expected outcomes were discussed in detail. These included but were not limited to: Infection, bleeding, injury to blood vessel or nerve, venous thromboembolism. All questions were answered to their satisfaction. Use of an clinical education assistant was necessary throughout the case for patient positioning and safety, soft tissue retraction, and closure. A modifier 22 should be added to this case patient's weight of 118 kg with a BMI of 48 made the exposure difficult. Because of the obesity, stemmed components were used in an attempt to reduce the risk of aseptic loosening. These factors added time and cost to complete the case. PROCEDURE: Spinal anesthesia was administered. The patient was placed supine on the operating table. The clinical education assistant made sure the patient was positioned appropriately. The lower extremity was prepped and draped in the usual sterile fashion. The limb was exsanguinated with the Blayne bandage. The pneumatic tourniquet was inflated to 300 mmHg. A standard anterior incision was made with the knee in flexion. Subcutaneous dissection was sharply taken through fascial layer #1. Full-thickness medial and lateral flaps were elevated. The clinical education assistant retracted the soft tissues and protected them throughout the case. A standard subvastus approach was made. The patella was subluxed. The infrapatellar fat pad was debrided. The menisci and cruciate ligaments were sharply d?brided. Marginal osteophytes were d?brided with the rongeur. The drill was used to penetrate the femoral canal. The canal was aspirated and irrigated with pulse lavage. The intramedullary femoral guide was placed for a 5-degree valgus cut, removing 10 mm off the distal femur. The saw was used to make the cut. Whitesides line and the trans epicondylar axis were marked. The femoral sizing guide was pinned onto the distal femur. Three degrees of external rotation nicely parallels the transepicondylar axis. Pins were placed for posterior referencing. The four-in-one cutting guide was pinned onto the distal femur. The anterior, posterior, and chamfer cuts were made. The clinical education assistant protected the collateral ligaments. The revision trial was placed. The box cuts were made. The drill was used x2. The stemmed, boxed trial was placed and was an excellent fit. Attention was then turned to the proximal tibia. The extramedullary tibial guide was placed for a neutral varus/valgus cut with 5 degrees of posterior slope, removing 2 mm based off the medial tibial surface. The clinical education assistant protected the collateral ligaments and the neurovascular bundle. The saw was used to make the cut. Trial components were placed. The knee was nicely balanced in both flexion and extension. The trial components were removed. The tray was placed in appropriate rotation, parallel to our tibial cutting pins. It was pinned by the clinical education assistant and the drill x2 was used. The stemmed tibial trial was placed. The punch was used. The tray was removed. The punch was used again. Attention was then turned to the patella. [place] patellar thickness was 22 mm. The lobster claw resection guide was used with the 9.5 mm heri. The saw was used to make the cut. Drill holes were made by the clinical education assistant. The trial was placed and was an excellent fit. Cancellous surfaces were irrigated with pulse lavage and thoroughly dried by the clinical education assistant. We cemented the tibial component, then the femoral component. We impacted the 5 mm polyethylene onto the tibial tray. The knee was brought into full extension. We then cemented the patellar component. Excessive cement was removed. The cement was allowed to harden. The knee was taken through a range of motion and was found to be nicely balanced in both flexion and extension. The patella tracks centrally. The clinical education assistant did a three minute dilute Betadine solution soak. The clinical education assistant irrigated the wound with 3 liters of normal saline via pulse lavage. The clinical education assistant reapproximated the extensor mechanism with #1 Vicryl in an interrupted [id number] fashion. The clinical education assistant then ran the extensor mechanism with a #1 PDO Stratafix. The clinical education assistant closed the subcutaneous tissues with a 3-0 Stratafix and the skin with a running 3-0 Stratafix in a subcuticular fashion. Glue was used to seal the skin. The clinical education assistant placed a dry dressing. Sponge and needle counts were correct x2. The patient tolerated the procedure well. There were no apparent complications. They were carefully transferred to the hospital bed and taken to the postanesthesia care unit in satisfactory condition. PLAN: The patient will be mobilized with physical therapy. Aspirin will be used for DVT prophylaxis. They will be discharged to home once medically appropriate.
--- NOTE | 2024-08-09 14:50 | W.ANESCHARGE ---
Anesthesia Charges Start Date/Time Anesthesia Start Date: 08/09/24 Anesthesia Start Time: 12:10 Stop Date/Time Anesthesia Stop Date: 08/09/24 Anesthesia Stop Time: 14:49
--- NOTE | 2024-08-09 15:11 | P.IMCN_ITS ---
Date of Consult Consult date: 08/09/24 Primary Care Provider: Franchesca Nichole DO Consult Narrative Narrative: HOSPITALIST CONSULT Procedure: NAME OF OPERATION: Left total knee arthroplasty SURGEON: Arjun Marrufo MD ANESTHESIA: Spinal ESTIMATED BLOOD LOSS: 0 mL COMPLICATIONS: None The hospital medicine team was asked by the orthopedic surgery team to manage the patient's hypertension, hypothyroidism, morbid obesity, prediabetes. There have been no perioperative complications. I have updated and reviewed the active medical problems, past medical history, past surgical history, social history, allergies and medications in our electronic EMR. This includes a cross reference to care everywhere in [facility] and with [facility] databases. PHYSICAL EXAM: CODE STATUS: FULL CODE CONSTITUTIONAL: Conversive, good historian. A/O. Knows setting and context. VITAL SIGNS: see record. HEENT: Normocephalic, atraumatic. PERRL, EOMI, conjunctivae pink, no scleral icterus. Ears and nose externally normal. Pharynx normal. NECK: No JVD. No carotid bruit, no thyromegaly, no adenopathy. CHEST: Clear to auscultation bilaterally HEART: S1 and S2 normal. ABDOMEN: Flat, soft, nontender. Normal bowel sounds. Moderately obese. EXTREMITIES: No edema. MUSCULOSKELETAL: Left knee is in surgical dressing postoperatively. There is no obvious hematoma or bleeding. NEURO: Cranial nerves intact. Mentation normal. Normal affect. SKIN: No rashes, petechiae, concerning changes PSYCHIATRIC: Mentation normal. INVESTIGATIONS: EMR Reviewed; Pre-OP Reviewed DISPOSITION: DVT: Agree with Ortho team decision, aspirin 81 mg b.i.d. GI: PO intake [facility] Medical History (Updated 08/09/24 @ 15:29 by Sara Wells MD) Obesity ?E66.9 - Obesity, unspecified (ICD-10) Osteoarthritis of carpometacarpal (CMC) joint of left thumb ?M18.12 - Unilateral primary osteoarthritis of first carpometacarpal joint, left hand (ICD-10) Hypertension ?I10 - Essential (primary) hypertension (ICD-10) High cholesterol ?E78.00 - Pure hypercholesterolemia, unspecified (ICD-10) Hypothyroidism ?E03.9 - Hypothyroidism, unspecified (ICD-10) Arthritis ?M19.90 - Unspecified osteoarthritis, unspecified site (ICD-10) Surgical History (Updated 08/09/24 @ 18:53 by Sara Wells MD) Status post left knee replacement ?Z96.652 - Presence of left artificial knee joint (ICD-10) History of cholecystectomy (~1999) ?Z90.49 - Acquired absence of other specified parts of digestive tract (ICD- 10) History of hysterectomy (~1990) ?Z90.710 - Acquired absence of both cervix and uterus (ICD-10) History of appendectomy (~1959) ?Z90.49 - Acquired absence of other specified parts of digestive tract (ICD- 10) History of tonsillectomy (~1967) ?Z90.89 - Acquired absence of other organs (ICD-10) Social History (Updated 06/13/24 @ 12:57 by Katya Tello ~ [facility], [facility]) Narrative: former smoker 11/12/2014 What is your current living situation?: I presently have a place to live Problems where you live: no known problems In the past 12 months, utilities in danger of being shut off: no In past 12 months, lack of transportation kept you from medical appts, meetings, work, or getting things needed for daily living: no In the past 12 mos, have been you worried that your food would run out before you had money to buy more?: never true In the past 12 mos, the food you bought just didn't last and you didn't have money to buy more?: never true Smoking Status: Former smoker What tobacco products do you use: cigarettes Smoking quit date/years: <= 15 years ago Do you use any of these nicotine containing products: None Second hand tobacco smoke exposure: No How often do you have a drink containing alcohol: 2-4 times a month How many standard drinks containing alcohol do you have on a typical day: 1 or 2 How often do you have six or more drinks on one occasion: Never AUDIT-C Alcohol total score: 2 Non-prescribed substance use: denies use How often does anyone, including family, friends and others, physically hurt you : never How often does anyone, including family, friends and others, insult or talk down to you: never How often does anyone, including family, friends and others, threaten you with harm: never How often does anyone, including family, friends and others, scream or curse at you: never service: No Meds Home Medications and Allergies Home Medications ?Medication ?Instructions ?Recorded ?Confirmed ?Type hydrochlorothiazide 25 mg tablet 25 mg PO DAILY 08/30/22 08/09/24 History levothyroxine 100 mcg tablet 100 mcg PO DAILY 05/12/24 08/09/24 History lisinopril 30 mg tablet 30 mg PO DAILY 05/12/24 08/09/24 History pravastatin 40 mg tablet 40 mg PO HS 05/12/24 08/09/24 History calcium carbonate (Calcium 600) 600 mg PO BID 08/09/24 08/09/24 History cholecalciferol (vitamin D3) 50 50 mcg PO DAILY 08/09/24 08/09/24 History mcg (2,000 unit) capsule glucosamine 500 mg-msm 500 1 tab PO BID 08/09/24 08/09/24 History mg-hyaluronic acid 1.1 mg tablet Allergies Allergy/AdvReac Type Severity Reaction Status Date / Time erythromycin base Allergy Mild Hives Verified 08/09/24 10:43 penicillin V Allergy Mild Hives Verified 08/09/24 10:43 Sulfa (Sulfonamide Allergy Mild Hives Verified 08/09/24 10:43 Antibiotics) amoxicillin Allergy Hives Verified 08/09/24 10:43 Exam Const: Vital Signs, click to edit/add: Vital Signs - 24 hr 08/09/24 11:00 08/09/24 11:40 08/09/24 11:45 Temperature 98.4 F Pulse Rate 89 80 82 Respiratory Rate 16 16 16 Blood Pressure 149/77 H 146/92 H 140/80 H Pulse Oximetry 95 96 98 Oxygen Delivery Me thod Room Air Room Air Nasal Cannula Oxygen Flow Rate 2 08/09/24 12:02 08/09/24 14:45 08/09/24 14:50 Temperature 97.3 F L Pulse Rate 79 78 73 Respiratory Rate 16 16 16 Blood Pressure 128/91 H 103/76 115/73 Pulse Oximetry 98 95 95 Oxygen Delivery Me thod Nasal Cannula Room Air Room Air Oxygen Flow Rate 2 08/09/24 14:55 08/09/24 15:00 08/09/24 15:05 Temperature Pulse Rate 70 67 65 Respiratory Rate 16 16 16 Blood Pressure 104/72 128/81 126/77 Pulse Oximetry 94 94 95 Oxygen Delivery Me thod Room Air Room Air Room Air Oxygen Flow Rate Assessment and Plan Assessment and plan (1) Status post left knee replacement: Problem comment: 08/09/24, Dr. Marrufo. Hospital medicine team is happy to follow this patient through to discharge. We agree with aspirin 81 mg b.i.d. for VTE prophylaxis. We expect a routine postoperative course. Status: Acute (2) Hyperlipidemia: Problem comment: Statin therapy Status: Acute (3) Obesity: Problem comment: BMI 48 Status: Acute (4) Hypertension: Problem comment: Home regimen includes lisinopril, 30 mg and hydrochlorothiazide 25 mg. Status: Acute (5) Hypothyroidism: Problem comment: Daily levothyroxine 100 mcg will be continue Status: Acute
[2024-08-09] MEDS: HYDROmorphone 0.5 mg/0.5 ml inj IVP ×2 (15:52→16:48)
[2024-08-09] MEDS: LACTATED RINGERS 1000 ML 1,000 ML 75 ML IV (16:05)
[2024-08-09] MEDS: CEFAZOLIN 2 GM in 0.9 % SODIUM CHLORIDE Mini-bag 100 ML IVPB (18:19)
[2024-08-09] MEDS: OXYCODONE 5 MG TABLET PO ×2 (19:42→23:23)
[2024-08-09] MEDS: SENNOSIDES 1 TAB TABLET 2 TAB PO (21:07)
[2024-08-09] MEDS: ASPIRIN 81 MG TABLET EC PO (21:08)
[2024-08-09] MEDS: PRAVASTATIN SODIUM 20 MG TABLET 40 MG PO (21:08)
--- NOTE | 2024-08-09 23:34 | PC.NURSE ---
PT VSS. A&O x4. Adv. diet to regular and tolerated well. SBA with one, walker and gait belt. Voiding fine. IV in left hand saline locked. Drinking oral fuids fine. Rated pain between 3-7/10 throughout shift.
[2024-08-10 01:45] VITALS: BP 133/70; PULSE 84; RESP 20; TEMP 37.1; O2SAT 93
[2024-08-10] MEDS: OXYCODONE 5 MG TABLET PO ×4 (01:45→11:54)
[2024-08-10] MEDS: CEFAZOLIN 2 GM in 0.9 % SODIUM CHLORIDE Mini-bag 100 ML IVPB (01:45)
[2024-08-10] MEDS: ACETAMINOPHEN 500 MG TABLET 1000 MG PO ×2 (06:19→11:54)
[2024-08-10] MEDS: LEVOTHYROXINE 100 MCG TABLET PO (06:20)
--- NOTE | 2024-08-10 06:38 | PC.NURSE ---
Addendum entered by Antonia Roberson 08/10/24 06:44: Scheduled Expanse down time from [id number] during shift ([id number]) Original Note: Pt alert and oriented x3. Afebirle. Pt reports 6-8/10 pain in left knee, pain managed with scheduled and PRN medications. Pt's left knee dressing is CDI. Pt is up SBA with walker, tolerating a regular diet and voiding.
[2024-08-10 07:02] LABS: Basophils Absolute Auto 0.03 K/uL (0.00-0.30); Basophils Percent Auto 0.4 % (0.0-3.0); Eosinophils Absolute Auto 0.32 K/uL (0.00-0.50); Eosinophils Percent Auto 3.8 % (0.0-7.0); Hematocrit 40.6 % (33.0-51.0); Hemoglobin* 13.4 gm/dL (12.0-16.0); Immature Granulocytes Abs Auto 0.02 K/uL (0.00-0.30); Immature Granulocytes Pct Auto 0.2 %; Lymphocytes Percent Auto 17.4 % (20-44); Mean Corpuscular HGB Conc 33 gm/dL (32-36); Mean Corpuscular Hemoglobin 29 pg (26-34); Mean Corpuscular Volume 89 fL (80-100); Monocytes Percent Auto 6.1 % (0.0-11.0); Neutrophils Percent Auto 72.1 % (42.0-72.0); Platelet Count* 274 K/uL (140-440); RDW Coefficient of Variation % 14.8 % (11.5-15.5); Red Blood Count 4.59 m/uL (4.00-5.20); White Blood Count* 8.37 K/uL (4.50-11.00)
[2024-08-10 07:05] LABS: Slide Review Reflex No
[2024-08-10 07:21] LABS: Potassium* 3.8 mmol/L (3.6-5.1); Sodium* 135 mmol/L (135-149)
[2024-08-10 07:23] LABS: INR 0.97 (0.91-1.10); Prothrombin Time 13.5 Seconds
[2024-08-10 07:24] LABS: Blood Urea Nitrogen* 18 mg/dL (7-30); Creatinine* 0.7 mg/dL (0.5-1.5); Est. Creatinine Clearance* 41.99; Estimated Glomerular Filt Rate 94 ml/min
[2024-08-10 08:10] VITALS: BP 144/71; PULSE 93; RESP 16; TEMP 37.1; O2SAT 86
[2024-08-10 08:15] VITALS: O2SAT 86
[2024-08-10] MEDS: ASPIRIN 81 MG TABLET EC PO (08:24)
[2024-08-10] MEDS: SENNOSIDES 1 TAB TABLET 2 TAB PO (08:24)
[2024-08-10 08:38] VITALS: O2SAT 95
--- NOTE | 2024-08-10 09:07 | PM.ORPN ---
Subjective Subjective Time Seen by Provider: 07:40 Date Seen: 08/10/24 Principal diagnosis: Status post left knee replacement Interval history: Eliana is comfortable this morning. She will discharge to home today. Ortho Exam Narrative Exam Narrative: Alert and oriented x3. Patient is in no acute distress. Converses without labored breathing. Hearing is grossly intact. Ambulates with a walker. Examination of the left knee shows dressing is intact. No erythema or warmth or sign of infection. CMS intact left lower extremity. She is able to straight leg raise. Calves are soft and nontender. Soft tissue edema is present. Mild hematoma anterior knee. Const Vital Signs, click to edit/add: Vital Signs - 24 hr 08/09/24 11:00 08/09/24 11:40 08/09/24 11:45 Temperature 98.4 F Pulse Rate 89 80 82 Pulse Rate [Pulse Oximeter] Respiratory Rate 16 16 16 Blood Pressure 149/77 H 146/92 H 140/80 H Blood Pressure [Right Arm] Pulse Oximetry 95 96 98 Oxygen Delivery Method Room Air Room Air Nasal Cannula Oxygen Flow Rate 2 08/09/24 12:02 08/09/24 14:45 08/09/24 14:50 Temperature 97.3 F L Pulse Rate 79 78 73 Pulse Rate [Pulse Oximeter] Respiratory Rate 16 16 16 Blood Pressure 128/91 H 103/76 115/73 Blood Pressure [Right Arm] Pulse Oximetry 98 95 95 Oxygen Delivery Method Nasal Cannula Room Air Room Air Oxygen Flow Rate 2 08/09/24 14:55 08/09/24 15:00 08/09/24 15:05 Temperature Pulse Rate 70 67 65 Pulse Rate [Pulse Oximeter] Respiratory Rate 16 16 16 Blood Pressure 104/72 128/81 126/77 Blood Pressure [Right Arm] Pulse Oximetry 94 94 95 Oxygen Delivery Method Room Air Room Air Room Air Oxygen Flow Rate 08/09/24 15:10 08/09/24 15:22 08/09/24 15:30 Temperature 97.2 F L 96.3 F L 96.4 F L Pulse Rate 67 65 62 Pulse Rate [Pulse Oximeter] Respiratory Rate 16 16 16 Blood Pressure 116/63 116/52 L 115/63 Blood Pressure [Right Arm] Pulse Oximetry 95 94 94 Oxygen Delivery Method Room Air Room Air Oxygen Flow Rate 2 08/09/24 15:45 08/09/24 16:00 08/09/24 16:15 Temperature 96.6 F L 96.6 F L 96.6 F L Pulse Rate 62 69 69 Pulse Rate [Pulse Oximeter] Respiratory Rate 16 16 16 Blood Pressure 114/83 123/69 136/80 Blood Pressure [Right Arm] Pulse Oximetry 94 93 93 Oxygen Delivery Method Room Air Room Air Room Air Oxygen Flow Rate 08/09/24 16:30 08/09/24 17:31 08/09/24 18:00 Temperature 97.1 F L 97.1 F L 96.8 F L Pulse Rate 65 65 65 Pulse Rate [Pulse Oximeter] Respiratory Rate 16 16 16 Blood Pressure 101/71 122/63 119/45 L Blood Pressure [Right Arm] Pulse Oximetry 93 92 92 Oxygen Delivery Method Room Air Room Air Room Air Oxygen Flow Rate 08/09/24 19:00 08/09/24 20:00 08/09/24 23:19 Temperature 96.8 F L 96.8 F L 98.0 F Pulse Rate 65 65 Pulse Rate [Pulse Oximeter] 81 Respiratory Rate 16 16 16 Blood Pressure 117/60 132/72 Blood Pressure [Right Arm] 109/66 Pulse Oximetry 92 91 93 Oxygen Delivery Method Room Air Room Air Room Air Oxygen Flow Rate 08/09/24 23:19 08/10/24 01:45 08/10/24 08:10 Temperature 98.8 F 98.7 F Pulse Rate Pulse Rate [Pulse Oximeter] 84 93 Respiratory Rate 16 20 16 Blood Pressure Blood Pressure [Right Arm] 133/70 144/71 H Pulse Oximetry 93 93 86 L Oxygen Delivery Method Room Air Room Air Room Air Oxygen Flow Rate 08/10/24 08:38 Temperature Pulse Rate Pulse Rate [Pulse Oximeter] Respiratory Rate Blood Pressure Blood Pressure [Right Arm] Pulse Oximetry 95 Oxygen Delivery Method Nasal Cannula Oxygen Flow Rate 2 Assessment and Plan Assessment and plan (1) Status post left knee replacement: Problem details: 08/09/24, Dr. Marrufo. Hospital medicine team is happy to follow this patient through to discharge. We agree with aspirin 81 mg b.i.d. for VTE prophylaxis. We expect a routine postoperative course. Status: Acute Assessment and Plan: Plan for discharge is today to home if they meet discharge criteria. DVT prophylaxis includes aspirin 81 mg twice daily x1 month, Compression stockings as needed for swelling. Frequent ambulation, every hour throughout the day. Remove dressing in 1 week. Observe wound and phone Orthopedics with any questions or concerns Return to clinic in 1 week for a wound check Return to clinic in 6 weeks with surgeon Minimize narcotic use. Wean off and discontinue soon as possible. Activities as tolerated. No strenuous activity. Outpatient physical therapy as scheduled. Ice and elevate the operative extremity. No restriction on ice.
[2024-08-10 10:59] VITALS: BP 139/92; PULSE 94; RESP 20; TEMP 36.6; O2SAT 92
--- NOTE | 2024-08-10 11:00 | PC.NURSE ---
Patient's saturations on RA at 0815 this morning were 86-89%. Dr. Cedeno was notified and will have RT see patient and will also consult on patient. Patient's lips have a discoloration to them. Patient states she is always in the low 90s at home and her lips are always this color. Patient stated she does have some shortness of breath but nothing out of the normal. Patient stated she has had nausea on and off throughout the night from the pain medication. Denies chest pain, headache, numbness and tingling. 2L was placed on patient at this time. PT reported that patient dropped down to 81% while ambulating on 1L. Patient recovered to 94% after ambulation. Oxygen was removed at 1050. Has maintained saturations above 90% since then. MD will see patient and make recommendations. Patient is persistent on going home today.
--- NOTE | 2024-08-10 11:06 | RESP.RT ---
Pt seen for desaturation this AM. She required 2L of oxygen, nursing reported some wheezing. Assessed PT on oxygen of 2L Spo2 was 97%. BBS were decreased, but no wheezing. Reviewed some previous records, looks like this as happened before to her. She does have an oximeter at home, which she could follow, and not start a steroid at this time. Spoke to her about possibly having some underlying emphysema, and maybe CASSY. Strongly suggested she see her PCP, and speak about seeing a airplane refueler soon. On RA now, with SPO2 91-94%, she reports that this is what it is at home.
--- NOTE | 2024-08-10 12:03 | PC.NURSE ---
Patient discharged home with daughter. See notes about respiratory concerns. PIV taken out and catheter intact. Incision clean, dry and intact. Does have a blister behind left knee that is full of fluid. Encouraged patient to monitor for signs and symptoms of infection. Patient stated it was rubbing on something all night. Patient worked with PT/OT. Was ambulating with stand by assist and walker and gaitbelt. Voiding without difficulty. Passing flatus. Tolerating a regular diet. Did have some nausea after oxycodone. Encouraged patient to take with food each time. Lung sounds diminished and tight throughout. Incentive spirometer sent home with patient. Has follow up with ortho, PT and her PCP. All questions answered. Left via wheelchair escort with daughter.
--- NOTE | 2024-08-10 12:37 | P.EN_ITS ---
Chart Event Note Date Seen: 08/10/24 Chart Event Note: Patient noted to have mild hypoxia on postoperative day 1 (low to mid 80% range during PT), asymptomatic with this. History of bronchitis has not been evaluated for CASSY or COPD. Improved to 95% + after therapies. Likely combination of iatrogenic effects (a nesthesia, opiates) and possible underlying lung disease. Discussed discharge with patient and daughter; she has an oximeter at home and will monitor saturations closely, continue IS upon discharge PCP follow-up to discuss.
== END 2024-08-10 12:00 | disposition home or self-care (01) ==
LOC: OR 10:24 → MEDSURG 10:27
PROVIDERS: PCP Family Medicine; Visit Provider Orthopaedic Surgery
PROC: (CPT 27447; principal; 2024-08-09 12:45)
DX: M17.12 Unilateral primary osteoarthritis, left knee (principal); G89.18 Other acute postprocedural pain; R09.02 Hypoxemia; Z68.42 Body mass index [BMI] 45.0-49.9, adult; E66.01 Morbid (severe) obesity due to excess calories; R73.03 Prediabetes; I10 Essential (primary) hypertension; E78.00 Pure hypercholesterolemia, unspecified; E03.9 Hypothyroidism, unspecified; R60.0 Localized edema; Z79.82 Long term (current) use of aspirin
CPT/HCPCS: 27447; 01402; 36415; 64447; 64454; 73560; 76942; 82565; 84132; 84295; 84520; 85025; 85610; 97110; 97116; 97161; 97165; 97530; 97535; A9270; C1776; J0665; J0690; J1100; J1171; J2250; J2405; J2704; J3010; J7120

== ENCOUNTER 2024-09-23 11:15 | Outpatient (RCR) | payer MEDICARE, SELFPAY ==
--- NOTE | 2024-08-12 12:59 | PT.OPE ---
PT [facility] Outpatient Eval PT [facility] Outpatient Eval Start: 08/12/24 07:50 Freq: Status: Active Protocol: Document 08/12/24 07:51 ENM (Rec: 08/12/24 12:16 ENM [id number]) E-signed By Carmelina Jean, DPT Physical Therapy Outpatient Evaluation Insurance Information Recert Due Date 11/10/24 Insurance Name Medicare B Medical Diagnosis unilateral primary osteoarthritis, left knee peripheral tear of medial meniscus, current injury, left knee, subsequent encounter presence of left artificial knee joint L TKA 08/09 Treating Diagnosis left knee pain, decreased knee ROM, impaired gait, muscle weakness, Referring MD Marrufo Subjective Subjective Patient presents to PT 3 days s/p left TKA (DOS 08/09). Is not having difficulty being at home. Is using a 2WW to get around. She has been able to lift her own leg and is doing all her exercises. Has been walking around home. Woke up on Thursday and had blisters in the back of the knee. These are weeping now and painful to the touch. She is taking oxycodone every 4-6 hours and tylenol every 6 hours. Is taking baby aspirin for a month. Also had lower levels of oxygen in the hospital. Pain Comments right now 06/28 laying 2-12/26 moving -03/28 Date of Surgery (If applicable) 08/09/24 Current Work Status Retired Objective Other/Pertinent Objective Knee ROM L 0-1-75 strength: poor quad set SLR able to complete without difficulty or assist gait/balance: Patient ambulates with 2WW, decreased knee flexion, moderate reliance on walker for support with progressing step length Performs STS with LLE extended Swelling/observation: superior patella: L 57 cm R 53 cm mid patella: L 52 cm R 46 cm inf patella: L 46 cm R [address], no bruising at this time. Patient has redness in medial thigh, blister in lateral thigh 4-6 inches with pink with 2 small weeping blisters below Assessment Assessment/Impression Patient returns to PT for evaluation after L TKA DOS . Knee pains are well managed with medication. They are getting around with use of 2WW with minimal difficulty. Primary complaint is of significant blistering present in posterior knee and thigh that started on Thursday. Patient feels that it is a skin reaction from icing and nerve block. Granddaughter is a nurse and has been monitoring it, she did not feel that it was infected. Therapist reached out to MD who felt that it could be bandaged and washed with soap and water if it did not look infected. There is no streakiness, significant warmth, redness or tenderness to palpation. Therapist advised patient to go to urgent care and rule out infection just to be safe. Upon assessment patient displays decreased knee ROM, impaired gait, impaired transfers, decreased quad strength and swelling. Impairments consistent with s/ p TKA. Eliana would benefit from skilled PT to address impairments stated above for return to PLOF after knee surgery. Primary Functional Limitations walking, standing, transfers, bending knee Plan of Care Rehabilitation Potential Good Physical Therapy Goals In 3-4 weeks: 1. Patient will improve knee ROM to > 100 for improved ease of STS transfers 2.Patient will ambulate with improved mechanics and less than 3/10 knee pain with or without AD >150' for improved household/community mobility 3. Patient will perform x10 SLR with improved form and strength to improve supine<> sit transfer In 6-8 weeks: 1. Patient will improve knee ROM to >120 in order to comfortably navigate stairs for household and community navigation 2. Patient will be able to walk up to 10 minutes without use of AD or report of increased knee pain 3. 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 demonstrating improved activity tolerance Coordination/Communication With Referral Source Treatment Plan/Direct Interventions Electrical Stimulation,Gait Training,Ice/Cold/ Vasopneumatic,Joint Mobilization,Manual Therapy, Neuromuscular Re-ed,Self-Care/ Home Management,Therapeutic Activities,Therapeutic Exercises Frequency/Duration 2x a weeks for 6-8 weeks Patient Will Be Discharged From Therapy Completion of LTG(s), Independent w/HEP Evaluation Billing Untimed Code Treatment Minutes 19 Complexity Low Certification Information Initial Certification Date 08/12/24 Ending Certification Date 11/10/24 Provider Signature Required Yes Provider Signature Shows Agreement With POC & Medical Necessity Physician NPI Number Write NPI# Here Physician Comment/Change : Physician Signature & Date Requested Please Sign/Date Here
== END 2024-11-14 15:28 | disposition home or self-care (01) ==
PROVIDERS: PCP Family Medicine; Visit Provider Orthopaedic Surgery
DX: M17.12 Unilateral primary osteoarthritis, left knee (principal); S83.222D Peripheral tear of medial meniscus, current injury, left knee, subsequent encounter; Z96.652 Presence of left artificial knee joint; M25.562 Pain in left knee; Z74.09 Other reduced mobility; R26.9 Unspecified abnormalities of gait and mobility; M62.81 Muscle weakness (generalized); Z51.89 Encounter for other specified aftercare
CPT/HCPCS: 97110; 97112; 97140; 97161; 97530; A9270; J2250; J3010

== ENCOUNTER 2024-10-26 09:27 | Outpatient (CLI) | payer OTHER, SELFPAY | END 2024-10-26 09:28 | disposition home or self-care (01) | LOC: LKVREF 09:28 | PROVIDERS: PCP Family Medicine; Visit Provider Physician Assistant Medical | DX: E03.9 Hypothyroidism, unspecified (principal) | CPT/HCPCS: 84443 ==

== ENCOUNTER 2025-02-28 06:32 | Day surgery (SDC) | payer MEDICARE, SELFPAY ==
[2025-02-28] VITALS (13 sets, daily range): BP systolic 91–130; BP diastolic 54–81; PULSE 67–82; RESP 16–17; TEMP 36.8–37.1; O2SAT 94–98; BMI 47.1
[2025-02-28] MEDS: LACTATED RINGERS 1000 ML 1,000 ML 100 ML IV (07:17)
[2025-02-28] MEDS: SODIUM CHLORIDE 0.9 % (FLUSH) 10 ML SYRINGE IVF (07:17)
[2025-02-28] MEDS: CEFAZOLIN 1 GM inj IVP (08:12)
--- NOTE | 2025-02-28 08:19 | SUR.OPER ---
PATIENT QUESTIONS ANSWERED SATISFACTORILY PREOPERATIVELY.? PATIENT BROUGHT TO OR #3 PER CART.? Patient positioned supine on OR #3 bed.? The perioperative?team supported arms bilaterally on arm boards.? Final approval of positioning by surgeon.? CONTINUOUS IRRIGATION OF THE RIGHT KNEE DURING THE PROCEDURE WITH NACL.
[2025-02-28] MEDS: BUPIVACAINE 0.25% 30 ML INJECTION ×2 (08:38→09:08)
--- NOTE | 2025-02-28 09:10 | P.ORPRC_ITS ---
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 Operative intervention was recommended. The risks, benefits and expected outcomes were discussed in detail. These included but were not limited to: Infection, bleeding, injury to blood vessel or nerve, venous thromboembolism. All questions were answered to their satisfaction. PROCEDURE: Spinal anesthesia was administered. The patient was placed supine on the operating room table. The left lower extremity was prepped and draped in the usual sterile fashion. The limb was exsanguinated with the Blayne bandage. The pneumatic tourniquet was inflated to 300 mmHg. A standard anterolateral portal was established. The arthroscope was introduced. The working portal was established anteromedially. Diagnostic arthroscopy was performed with findings as follows: The patellar component is intact with circumferential scarring surrounding it. The femoral component is normal, the tibial polyethylene is normal. The scarring posterior to the patellar tendon was debrided with the radiofrequency probe and shaver. A superolateral portal was placed. Then we aggressively debrided around the patellar component and posterior to the quads tendon with the shaver and radiofrequency probe. There was a small ridge of extruded cement just lateral to the femoral component. This was smoothed off with the 4.0 mm round bur. Arthroscopic instruments were removed, the portal sites were closed with a 3-0 nylon. Portals were injected with 0.25% Marcaine without epinephrine. A dry dressing was applied, the tourniquet was released. Sponge and needle counts were correct x 2. The patient tolerated the procedure well. There were no apparent complications. They were carefully transferred to the hospital bed and taken to the postanesthesia care unit in satisfactory condition. PLAN: The patient will be discharged to home. They may weightbear as tolerates. Range of motion will be unrestricted. They will follow up in the office in 2 weeks for a wound check and suture removal.
--- NOTE | 2025-02-28 09:26 | P.ANES_ITS ---
Anesthesia Charges Start Date/Time Anesthesia Start Date: 02/28/25 Anesthesia Start Time: 08:01 Stop Date/Time Anesthesia Stop Date: 02/28/25 Anesthesia Stop Time: 09:20 Summary Extremes of Age - Over 70 or under 1: SKATE BOARDER Coding CPT Codes CPT Codes: ANESTH KNEE JOINT SURGERY - 84413 ([id number]) P3 - PATIENT W/SEVERE SYS DISEASE, QK - WAFER FAB OPERATOR 2-4 CNCRNT ANES PROC, QX - SKATE BOARDER SVC W/ MD MED DIRECTION Additional Codes: Summary - Extremes of Age - Over 70 or under 1: SKATE BOARDER ([id number])
--- NOTE | 2025-02-28 09:26 | W.ANESCHARGE ---
Anesthesia Charges Start Date/Time Anesthesia Start Date: 02/28/25 Anesthesia Start Time: 08:01 Stop Date/Time Anesthesia Stop Date: 02/28/25 Anesthesia Stop Time: 09:20 Summary Extremes of Age - Over 70 or under 1: CHIEF UNDERWRITER Coding CPT Codes CPT Codes: ANESTH KNEE JOINT SURGERY - 90040 ([id number]) P3 - PATIENT W/SEVERE SYS DISEASE, QK - STRAIGHTENING PRESS OPERATOR 2-4 CNCRNT ANES PROC, QX - CHIEF UNDERWRITER SVC W/ MD MED DIRECTION Additional Codes: Summary - Extremes of Age - Over 70 or under 1: CHIEF UNDERWRITER ([id number])
[2025-02-28] MEDS: MEPERIDINE 25 MG/ML INJ 12.5 MG IVP (09:52)
== END 2025-02-28 10:58 | disposition home or self-care (01) ==
LOC: OR 06:33
PROVIDERS: PCP Physician Assistant Medical; Visit Provider Orthopaedic Surgery
PROC: (CPT 29870; principal; 2025-02-28 08:00)
DX: M25.862 Other specified joint disorders, left knee (principal); Z96.652 Presence of left artificial knee joint; E11.9 Type 2 diabetes mellitus without complications; Z79.85 Long-term (current) use of injectable non-insulin antidiabetic drugs; I10 Essential (primary) hypertension
CPT/HCPCS: 29877; 01400; 82962; 99100; J0665; J0690; J1100; J2175; J2250; J2371; J2405; J2704; J3010; J7120

== ENCOUNTER 2025-04-10 15:07 | Outpatient (CLI) | payer MEDICARE, SELFPAY | END 2025-04-10 15:08 | disposition home or self-care (01) | PROVIDERS: PCP Physician Assistant Medical; Visit Provider Physician Assistant Medical | DX: E55.9 Vitamin D deficiency, unspecified (principal); I10 Essential (primary) hypertension; E11.9 Type 2 diabetes mellitus without complications; E03.9 Hypothyroidism, unspecified | CPT/HCPCS: 80053; 80061; 82043; 82570; 82607 ==

== ENCOUNTER 2025-05-04 10:41 | Outpatient (CLI) | payer MEDICARE, SELFPAY ==
--- NOTE | 2025-05-04 11:00 | CRLHL7_ITS ---
For Patients: As a result of the Cures Act, medical imaging exams and procedure reports are released immediately into your electronic medical record. You may view this report before your referring provider. If you have questions, please contact your health care provider. INDICATION: Lung cancer screening. History of smoking. High risk patient with greater than 30 pack-year smoking history. TECHNIQUE: Low-dose lung cancer screening non-contrast CT chest. Dose reduction techniques were used. COMPARISON: None. FINDINGS: NODULES: 4.6 millimeter right perihilar nodule, 4/58. Small nodular densities in the left lung apex, each measuring 2-3 millimeters. LUNGS AND PLEURA: Emphysema. MEDIASTINUM: No enlarged lymph nodes. CORONARY ARTERY CALCIFICATION: Mild. LIMITED UPPER ABDOMEN: Gallbladder absent. MUSCULOSKELETAL: No fracture. IMPRESSION: Negative for lung cancer screening purposes. LUNG-RADS CATEGORY: 2: Benign. RADIOLOGIST RECOMMENDATION: Continue annual screening, if eligible, with low-dose CT chest in 12 months. Please note that all CT scans at this facility use dose modulation, iterative reconstruction, and/or weight-based dosing when appropriate to reduce radiation dose to as low as reasonably achievable. Dictated by George Mendoza MD @ 05/04/2025 11:42:39 AM (Electronically Signed)
== END 2025-05-04 10:42 | disposition home or self-care (01) ==
LOC: CT 10:41
PROVIDERS: PCP Physician Assistant Medical; Visit Provider Physician Assistant Medical
DX: Z12.2 Encounter for screening for malignant neoplasm of respiratory organs (principal); Z87.891 Personal history of nicotine dependence
CPT/HCPCS: 71271

== ENCOUNTER 2025-07-07 19:40 | Emergency (ER) | payer MEDICARE, SELFPAY ==
--- OUTSIDE RECORDS SUMMARY | 2025-07-07 19:42 | XMS_ITS | Clinical Summary ---
Author Organization [facility] Address [address] [place] [id number] Care Team Providers Care Mfts Name Role Phone YonisreyrehanFranchesca DO Primary Care Provider Allergies Active Allergy Reactions Criticality Noted Date Comments Erythromycin 02/04/2006 Penicillins 02/04/2006 Sulfa (Sulfonamide Antibiotics) 02/04/2006 Rash previously, and again rash possibly due to bactrim 10/2010. Medications cholecalciferol (VITAMIN D-3) 2,000 unit capsule Take 1 capsule by mouth once daily. 0 7 Active calcium carbonate (CALTRATE) 600 mg calcium (1,500 mg) tablet Take 1 tablet by mouth 2 times daily with meals. 180 tablet 3 0 Active glucosamine HCl-hyaluronic 1,000-1.65 mg tab Take by mouth two times daily. 0 3 Active medication order composer [facility] for eye health Active hydroCHLOROthiazid e 25 mg tabletIndications: Essential hypertension Take 1 Tablet (25 mg) by mouth once daily. 100 Tablet 3 4 Active lisinopriL (PRINIVIL; ZESTRIL) 30 mg tabletIndications: Essential hypertension Take 1 Tablet (30 mg) by mouth once daily. 100 Tablet 3 4 Active pravastatin (PRAVACHOL) 40 mg tabletIndications: Mixed hyperlipidemia Take 1 Tablet (40 mg) by mouth at bedtime. 100 Tablet 3 4 Active aspirin chewable 81 mg chewable tablet Chew by mouth. 4 Active oxyCODONE (ROXICODONE) 5 mg immediate release tablet Take by mouth. 4 Active triamcinolone (ARISTOCORT; KENALOG) 0.1 % creamIndications:C hronic dermatitis Apply topically to affected area(s) two times daily. Up to 2 weeks for left lower extremity rash 45 g 4 Active levothyroxine 88 mcg tabletIndications: Hypothyroidism, unspecified type TAKE 1 TABLET (88 MCG) BY MOUTH BEFORE BREAKFAST. 90 Tablet 1 5 Active Active Problems Problem Noted Date Diagnosed Date Type 2 diabetes mellitus wit hout complication, without long-term current use of insulin 09/02/2024 Macular degeneration 08/05/2017 Overview (08/05/2017): [facility] [place] Prediabetes 12/31/2016 Rosacea 05/10/2013 Colon polyp 07/10/2011 Overview (01/21/2023): Colonoscopy 02/2011 polyp repeat in 5 years Colonoscopy 02/2017 diverticulosis repeat in 5 years Colonoscopy 01/2023 diverticulosis , repeat in 7-10 years Personal history of tobacco use, presenting hazards to health 12/17/2010 Vitamin D deficiency 11/17/2009 Hyperlipemia 11/05/2009 Essential hypertension 12/11/2008 Morbid obesity 10/25/2008 Hypothyroidism Resolved Problems Problem Noted Date Diagnosed Date Resolved Date ANKLE SPRAIN 03/20/2004 04/03/2004 FX CLOSED METATARSAL 03/20/2004 004 Tobacco use disorder 011 Immunizations Immunization Administration Dates Next Due Influenza, High-dose Quadriv alent Inactivated 09/28/2023,09/16/2022,09/03/2021,2019 Influenza, IIV3 (Age >=3 years) 09/30/20 16,08/16/2014,08/16/2014,2012,07/20/2012 Influenza, IIV4 09/01/2018,07/23/2015 Influenza, IIV4 (=>6mos) MDV 07/29/2019,09/01/20 18,07/31/2017 Influenza, Inactivated IIV3 (Age 65+ Years) Preserv Free 07/14/2024 Pneumococcal Poly,23-Valent (Pneumovax) 06/05/2021 Pneumococcal conj 13-Valent (Prevnar 13) 04/18/2020 Td (Age >=7 Years) 07/28/2005 Tdap 07/03/2022,07/20/2012 Zoster (Shingrix-RZV, recombinant) 04/06/2019, Zoster (Zostavax-ZVL, live) 11/23/2014 Family History Medical History Relation Name Comments Cancer-prostate Father Diabetes Father Heart attack Maternal Grandmother Genetic Other father prostate cancer ~Patient/parent reports no family history of malignant hyperthermia or other anesthetic complications. Diabetes Paternal Grandmother Cancer-breast No Family History Cancer-ovarian No Family History Relation Name Status Comments Father Maternal Grandmother Other Paternal Grandmother Social History Tobacco Use Types Packs/Day Years Used Date Smoking Tobacco: Former Cigarettes 0.2 41.1 1 973 - 11/12/2013 Passive Smoke Exposure: Never Smokeless Tobacco: Never Tobacco Cessation:Counseling Given: Not Answered Alcohol Use Standard Drinks/Week Comments Yes 0 (1 standard drink = 0.6 oz pur e alcohol) weekends PHQ-2 Answer Date Recorded PHQ-2 TOTAL SCORE 0 07/14/2024 Social Connections Answer Date Recorded Do you often feel lonely or isolated from those around you? 0 07/14/2024 Financial Resource Strain Answer Date R ecorded Difficulty of Paying Living Expenses 3 07/13/2024 Difficulty of Paying Living Expenses Not on file 07/13/2024 Food Insecurity Answer Date Recorded Do you worry your food will run out before you are able to buy more? 1 07/14/2024 Transportation Needs Answer Date Record ed Does lack of transportation keep you from medica l appointments? 1 07/14/2024 Does lack of transportation keep you from work, meetings or getting things that you need? 1 07/14/2024 Housing Stability Answer Date Recorded What is your housing situation today? 1 07/14/2024 Utilities Answer Date Recorded Do you have trouble paying f or utilities (for example, heat, electricity, water, phone)? 1 07/14/2024 Comments No Sex and Gender Information Value Date Recorded Sex Assigned at Female 04/16/2020 11:46 AM CDT Legal Sex Female 5:24 AM PRODUCTION ARTIST Gender Identity Female 04/16/2020 11:46 AM CDT Sexual Orientation Straight 04/16/2020 11 :46 AM CDT Obstetrics History Para Term AB IAB SAB Ectopic Multiple Livin g Live Births 3 3 2 1 0 0 0 0 1 3 Date Outcome GA Total Labor Labor/2nd/3rd Weight Sex Type Anes PTL Deyanira A1 A5 Name Clin Term Term Last Filed Vital Signs Vital Sign Reading Time Taken Comments Blood Pressure 138/82 09/01/2024 10:12 AM PRODUCTION ARTIST Pulse 74 09/01/2024 10:12 AM PRODUCTION ARTIST Temperature 36.6 C (97.8 F) 09/01/2024 10:12 AM PRODUCTION ARTIST Respiratory Rate 16 01/21/2023 12:0 5 PM CDT Oxygen Saturation 96% 09/01/2024 10: 12 AM PRODUCTION ARTIST Inhaled Oxygen Concentration - - Weight 119.2 kg (262 lb 12.8 oz) 2023 10:12 AM PRODUCTION ARTIST Height 158 cm (5' 2.21) 07/25/2024 1:15 PM CDT Body Mass Index 47.74 07/25/2024 1:15 PM CDT Plan of Treatment Health Maintenance Due Date Last Done Comments RSV vaccine for adults or (1 - Risk 60-74 years 1-dose series) 2014 COVID-19 vaccine series ( season) 2025 09/24/2021, 01/15/2021 Influenza Vaccine (#1) 2025 , 07/29/2019, 09/01/2018, Additional history exists Mammogram for age 45-75 07/12/2025 07/12/20 24, 07/06/2023, 07/02/2022, Additional history exists Depression screening for age 12+ 07/15/2025 07/15/2024, 07/15/2024, 07/14/2024, Additional history exists Medicare Wellness for age 65+ 07/15/2025 07/14/2024, 07/09/2023, 07/03/2022, Additional history exists BMI (ht and wt on same day) for age 18+ 07/25/2025 07/25/2024, 07/14/2024, 07/09/2023, Additional history exists Lipids for age 45-75 07/14/2029 07/14/2024, 07/09/2023, 07/03/2022, Additional history exists Colonoscopy through age 75 01/21/203001/21, 01/21/2023, 01/21/2023, Additional history exists Tetanus booster 07/03/2032 07/03/2022, 1011/2011, 07/28/2005 Hepatitis C screening for age 18-79 Completed 05/22/2009 Zoster (shingles) series for age 50+ Completed 04/06/2019, 01/04/2019, 11/23/2014 DEXA/DXA scan for age 65+ Completed 05/24/2020, 02/2013 Pneumococcal series for age 50+ Completed 06/05/2021, 04/18/2020 Hepatitis B series for 19+ Aged Out N o longer eligible based on patient's age to complete this topic Procedures Procedure Name Priority Date/Time Associated Diagnosis Comments LIPID PANEL W REFLEX MEASURED LDL Routine 07/14/2024 11:03 AM CDT Mixed hyperlipidemia XR MAMMO STANLEY BILAT SCREEN Routine 07/12/2024 11:07 AM CDT Encounter for screening mammogram for malignant neoplasm of breast COLONOSCOPY SCREENING Routine 01/21/2023 10:01 AM CDT Diverticulosis History of colon polyps XR DXA BONE DENSITY 2 SITES AXIAL Routine 05/24/2020 1:34 PM CDT Menopause ANTI HCV Routine 05/22/2009 1:53 PM CDT Hepatitis from Last 3 Months or Most Recently Relevant to Health Maintenance Results * LIPID PANEL W REFLEX MEASURED LDL (07/14/2024 11:03 AM CDT) CHOLESTEROL, TOTAL 177 <200 mg/dL [facility] HDL CHOLESTEROL 65 > OR = 50 mg/dL [facility] TRIGLYCERIDES 126 <150 mg/dL [facility] LDL-CHOLESTEROL 89 mg/dL (calc) [facility] Comment: Reference range: <100 Desirable range <100 mg/dL for primary prevention; <70 mg/dL for patients with CHD or diabetic patients with > or = 2 CHD risk factors. LDL-C is now calculated using the Mendy calculation, which is a validated novel method providing better accuracy than the Friedewald equation in the estimation of LDL-C. Blayne SILVESTRE et al. DANK. 2013;310(19): 5860-0245 (http://education.zLense/faq/JFO250) CHOL/HDLC RATIO 2.7 <5.0 (calc) [facility] NON HDL CHOLESTEROL 112 <130 mg/dL (calc) [facility] Comment: For patients with diabetes plus 1 major ASCVD risk factor, treating to a non-HDL-C goal of <100 mg/dL (LDL-C of <70 mg/dL) is considered a therapeutic option. Blood BLOOD SPECIMEN / Unknown 07/14/2024 11:03 AM CDT 07/14/2024 11:04 AM CDT Franchesca Nichole DO CHEMISTRY Final Resul t [facility] [address] [place] [address], [facility] [address] [place] [address] * XR MAMMO STANLEY BILAT SCREEN (07/12/2024 11:07 AM CDT) Anatomical Region Laterality Modality BREASTS, Breast Left, Breast Right Bilateral Mammography Impressions 07/13/2024 4:02 PM CDT There is no radiographic evidence for malignancy. Recommend annual mammograms. MAMMOGRAM ASSESSMENT: ACR 1 Negative PATIENTS: You will also receive a letter with your examination results in an easy to read format. If you have questions about your results, please contact your referring provider. Narrative 07/13/2024 4:02 PM CDT For Patients: As a result of the Century Cures Act, medical imaging exams and procedure reports are released immediately into your electronic medical record. You may view this report before your referring provider. If you have questions, please contact your health care provider. XR MAMMO STANLEY BILAT SCREEN [[id number]] CLINICAL HISTORY: This is an asymptomatic 68 y.o. patient. INDICATION FOR EXAM: Mammogram Screening. TECHNIQUE: CC & MLO views were obtained. This study was evaluated with the assistance of Computer-Aided Detection. Breast Tomosynthesis was used in interpretation. COMPARISON FILM: Yes 07/06/23 [facility] 07/02/22 [facility] FINDINGS: There are scattered areas of fibroglandular density. There are no dominant masses, suspicious micro calcifications or areas of architectural distortion. us Franchesca Nichole DO MAMMO Final Resul t * COLONOSCOPY (01/21/2023 10:55 AM CDT) 01/21/2023 10:5 5 AM CDT Narrative Transcriptions Blayne Valdovinos MD - 01/21/2023 11:55 AM CDT Patient Name: Eliana Downing Procedure Date: 01/21/2023 Gender: Female Date of : 1955 Admit Type: Outpatient Procedure: Colonoscopy Proceduralist: Blayne Valdovinos MD , Chelsea Baird, RN(Nurse), Hailee Mercer (Nurse) Referring MD: Franchesca Nichole Indications/Pre-Op Diagnosis: High risk colon cancer surveillance:Personal history of adenoma less than 10 mm in size, Last colonoscopy: February 2017 Medications: Fentanyl 100 micrograms IV, Midazolam 2 mgIV, The level of sedation administered wasmoderate Procedure Description: The patient had risks, benefits and alternatives explained to andgave informed consent. The patient had a stable cardiopulmonary status and judged an adequate candidate for conscious sedation. The endoscope [id number] was passed through the anus andadvanced to the cecum, identified by appendiceal orifice and ileocecal valve.The colonoscopy was performed without difficulty. The patient toleratedthe procedure well. The quality of the bowel preparation was good. The ileocecal valve, appendiceal orifice, and rectum were photographed. Complications: No immediate complications. Estimated Blood Loss & Specimen: Estimated blood loss: none. Specimen collected - None Findings: The perianal and digital rectal examinations were normal. Scattered small-mouthed diverticula were found in the sigmoidcolon. The exam was otherwise without abnormality on direct and retroflexion views. Impressions/Post-Op Diagnosis: - Diverticulosis in the sigmoid colon. - The examination was otherwise normal on direct and retroflexionviews. - No specimens collected. Recommendation: - Patient has a contact number available for emergencies. The signsand symptoms of potential delayed complications were discussed with the patient. Return to normal activities tomorrow. Written discharge instructions were provided to the patient. - Resume previous diet. - Continue present medications. - Repeat colonoscopy in 7-10 years for surveillance. Moderate Sedation: A time out was performed before the procedure. Moderate (conscious) sedation was administered by the endoscopy nurse and supervised bythe endoscopist. The following parameters were monitored: oxygensaturation, heart rate, blood pressure, EKG, CO2, respiratory rate, adequacy of pulmonary ventilation and reponse to care. Please refer to the patient's medical record flowsheets and nursing notes for moderate sedation details. Total physician intraservice time was 16 minutes. Blayne Valdovinos MD 01/21/2023 11:55:11 AM This report has been signed electronically. Note Initiated On: 01/21/2023 10:55 AM Procedure Code(s): --- Professional --- 15196, Colonoscopy, flexible; diagnostic, including collection of specimen(s) bybrushing or washing, when performed (separateprocedure) Diagnosis Code(s): --- Professional --- Z86.010, Personal history of colonicpolyps K57.30, Diverticulosis of large intestine without perforation or abscess withoutbleeding CPT copyright 2021 [employer]. All rights reserved. The codes documented in this report are preliminary and upon script coordinator reviewmay be revised to meet current compliance requirements. Scope In: 11:32:49 AM Scope Withdrawal Time 0 hours 7 minutes 34 seconds Scope Out: 11:46:32 AM us Blayne Valdovinos MD PROCEDURE ORD Final Res ult * XR DXA BONE DENSITY 2 SITES AXIAL [53297.1] (05/24/2020 1:34 PM CDT) Anatomical Region Laterality Modality Spine, HIPS, HIPL, HIPR Other Narrative 06/06/2020 7:47 AM CDT Please see scanned document for results of this study. Franchesca Nichole DO DEXA Final Resul t * ANTI HCV (05/22/2009 1:53 PM CDT) ANTI HCV Non-reacti ve [facility] Blood specimen (specimen) BLOOD SPECIMEN / Unknown 05/22/2009 1:53 PM CDT 05/22/2009 1:45 PM CDT Nanda Briceño MD SEND OUTS Final Result [facility] [place] ZIP [address] [place] [id number] from Last 3 Months or Most Recently Relevant to Health Maintenance Insurance [facility] MR Care Teams Mfts Relationship Specialty Start [place] [address] [place] [address] PCP - General Family Practice 12/31/16
[2025-07-07 19:51] VITALS: BP 102/61; PULSE 98; RESP 22; TEMP 36.9; O2SAT 87; BMI 44.8
--- NOTE | 2025-07-07 19:54 | PC.NURSE ---
placed on 2L via nasal cannula fo spo2 in 80's
--- NOTE | 2025-07-07 20:12 | ED.GENADULT ---
HPI - General Adult General Chief complaint: Shortness of Breath/Dyspnea Stated complaint: Low 0? Time Seen by Provider: 07/07/25 20:11 History of Present Illness HPI narrative: pt here with dyspnea, has had cold symptoms since Thursday, got new oximeter today and sats at home were 82-88 % on home oximeter, pt has been taking a z-mikayla she had at home, has albuterol inhaler at home but is not prescribed, cough has been sounding like her bronchitis in past which she tends to get about once a year 69-year-old woman presenting to the emergency department with concern of shortness of breath. This is now 4th day of cold symptoms. Had some runny nose and cough which now has resolved. Has been wheezy. Did finish a 3 day course of azithromycin at 500 mg b.i.d. does not have a diagnosis of asthma but does have an albuterol inhaler. Both medications were from [facility] retrieved for her in February of this year. Has had a little discomfort also in the left facial sinuses. Does have prednisone also available from [facility] but has not taken this. Otherwise using DayQuil and NyQuil. Hometown warm earlier in course but it sounds like did not actually measure temperature to confirm a fever. Former smoker. Less coughing now but more short of breath. Did use her new home oxygen monitor which was reading in the 80s. Is not having any pleuritic pain. Has struggled with sinus problems. Has seen ENT in pending some facial CT imaging she reveals later. Related Data Home Medications ?Medication ?Instructions ?Recorded ?Confirmed hydrochlorothiazide 25 mg tablet 25 mg PO DAILY 08/30/22 06/13/25 lisinopril 30 mg tablet 30 mg PO DAILY 05/12/24 06/13/25 cholecalciferol (vitamin D3) 50 50 mcg PO DAILY 08/09/24 06/13/25 mcg (2,000 unit) capsule jfyspgpy-bwpllhfm-nfaeh acid 500 tab PO 10/18/24 06/13/25 mcg-lutein 5 mg-zeaxanth 1 mg tablet (Macular Vitamin) calcium carb-ergocalciferol (vit tab PO 03/15/25 06/13/25 D2) 600 mg calcium-200 unit tablet Previous Rx's ?Medication ?Instructions ?Recorded tirzepatide 7.5 mg/0.5 mL 7.5 mg (0.5 mL) subcut QWEEK #2 mL 05/03/25 subcutaneous pen injector (Mounjaro) levothyroxine 88 mcg tablet 88 mcg PO QDAY #90 tabs 06/15/25 pravastatin 40 mg tablet 40 mg PO HS #90 tabs 06/15/25 tirzepatide 10 mg/0.5 mL 10 mg (0.5 mL) subcut QWEEK #2 mL 06/28/25 subcutaneous pen injector (Mounjaro) Allergies Allergy/AdvReac Type Severity Reaction Status Date / Time erythromycin base Allergy Mild Hives Verified 06/13/25 08:25 penicillin V Allergy Mild Hives Verified 06/13/25 08:25 Sulfa (Sulfonamide Allergy Mild Hives Verified 06/13/25 08:25 Antibiotics) amoxicillin Allergy Hives Verified 06/13/25 08:25 Review of Systems Status of ROS: Reports: 6 or more systems reviewed and unremarkable except as noted in History and below [facility] Medical History Diabetes mellitus ?E11.9 - Type 2 diabetes mellitus without complications (ICD-10) Pre-diabetes ?R73.03 - Prediabetes (ICD-10) Osteoarthritis of carpometacarpal (CMC) joint of left thumb ?M18.12 - Unilateral primary osteoarthritis of first carpometacarpal joint, left hand (ICD-10) Colon polyp ?K63.5 - Polyp of colon (ICD-10) Hypertension ?I10 - Essential (primary) hypertension (ICD-10) High cholesterol ?E78.00 - Pure hypercholesterolemia, unspecified (ICD-10) Hypothyroidism ?E03.9 - Hypothyroidism, unspecified (ICD-10) Arthritis ?M19.90 - Unspecified osteoarthritis, unspecified site (ICD-10) Surgical History H/O arthroscopy of left knee (02/28/25) ?Z98.890 - Other specified postprocedural states (ICD-10) Status post left knee replacement (08/09/24) ?Z96.652 - Presence of left artificial knee joint (ICD-10) History of cholecystectomy (~1999) ?Z90.49 - Acquired absence of other specified parts of digestive tract (ICD-10) History of hysterectomy (~1990) ?Z90.710 - Acquired absence of both cervix and uterus (ICD-10) History of appendectomy (~1959) ?Z90.49 - Acquired absence of other specified parts of digestive tract (ICD-10) History of tonsillectomy (~1967) ?Z90.89 - Acquired absence of other organs (ICD-10) Family History Father Prostate cancer High blood pressure Maternal Grandmother Myocardial infarction Paternal Grandmother Diabetes Mother High cholesterol High blood pressure Social History Narrative: Retired 2 children former smoker quit 11/12/2014 What is your current living situation?: I presently have a place to live Problems where you live: no known problems In the past 12 months, utilities in danger of being shut off: no In past 12 months, lack of transportation kept you from medical appts, meetings, work, or getting things needed for daily living: no In the past 12 mos, have been you worried that your food would run out before you had money to buy more?: never true In the past 12 mos, the food you bought just didn't last and you didn't have money to buy more?: never true Smoking Status: Former smoker What tobacco products do you use: cigarettes Smoking quit date/years: <= 15 years ago Do you use any of these nicotine containing products: None Second hand tobacco smoke exposure: No How often do you have a drink containing alcohol: 2-4 times a month How many standard drinks containing alcohol do you have on a typical day: 3 or 4 How often do you have six or more drinks on one occasion: Monthly AUDIT-C Alcohol total score: 5 Non-prescribed substance use: marijuana (any form) and other Non-prescribed substance use details: THC Gummies Caffeine: Yes How often does anyone, including family, friends and others, physically hurt you: never How often does anyone, including family, friends and others, insult or talk down to you: never How often does anyone, including family, friends and others, threaten you with harm: never How often does anyone, including family, friends and others, scream or curse at you: never Are you using contraception or practicing any form of control: No service: No Exam Narrative: Exam Narrative: Very pleasant. Sounds a little congested nasopharynx without facial swelling erythema or particular tenderness. TMs bilaterally are clear. Mildly labored in mildly tachypneic with her breathing. Trace very end expiratory wheeze and squeak. Mild congestion. Heart in elevated rate and regular rhythm. Extremities are well perfused without edema. She is generally rather gandara. Oropharynx is moist with some posterior oropharyngeal irritation/cobblestoning. Const: Vital Signs, click to edit/add: Vital Signs - 24 hr 07/07/25 19:51 07/07/25 20:47 07/07/25 20:47 Temperature 98.5 F Pulse Rate Pulse Rate [Right Pulse Oximeter] 98 Respiratory Rate 22 Blood Pressure [Le ft Upper Arm] 102/61 Pulse Oximetry 87 L 92 87 L Oxygen Delivery Me thod Room Air Room Air 07/07/25 21:39 07/07/25 21:45 07/07/25 22:54 Temperature Pulse Rate 86 85 Pulse Rate [Right Pulse Oximeter] 90 Respiratory Rate 20 Blood Pressure [Le ft Upper Arm] Pulse Oximetry 93 92 Oxygen Delivery Me thod Documenting provider has reviewed patient's vital signs: yes Course Vital Signs Vital signs: Initial Vital Signs Respiratory Effort Normal, SOB at Exertion 07/07/25 19:50 Respiratory Depth Normal 07/07/25 19:50 Respiratory Pattern Normal 07/07/25 19:50 Vital Signs Temperature 98.5 F 07/07/25 19:51 Pulse Rate 98 07/07/25 19:51 Respiratory Rate 22 07/07/25 19:51 Blood Pressure 102/61 07/07/25 19:51 Pulse Oximetry 87 L 07/07/25 19:51 Oxygen Delivery Method Room Air 07/07/25 19:51 Temperature 98.5 F 07/07/25 19:51 Pulse Rate 90 07/07/25 22:54 Respiratory Rate 20 07/07/25 22:54 Blood Pressure 102/61 07/07/25 19:51 Pulse Oximetry 92 07/07/25 21:45 Oxygen Delivery Method Room Air 07/07/25 20:47 Medications Administered Medications: Discontinued Medications Generic Name Dose Route Start Last Admin Trade Name Freq PRN Reason Stop Dose Admin Albuterol 2.5 mg 07/07/25 22:21 07/07/25 22:26 Albuterol Sulfate 2.5 Mg/3 Ml Vial.Neb NEB 07/07/25 22:22 2.5 mg ONCE ONE Administration Albuterol/Ipratropium 1 neb 07/07/25 20:47 07/07/25 20:53 Iprat-Albut 0.5-2.5 Mg/3 Ml Neb 07/07/25 20:48 1 neb ONCE ONE Administration Prednisone 80 mg 07/07/25 20:46 07/07/25 20:52 Prednisone 20 Mg Tablet PO 07/07/25 20:47 80 mg ONCE ONE Administration Medical Decision Making MDM Narrative Medical decision making narrative: Is demonstrating some hypoxia here today. Think with the wheeze though would benefit from nebulization. Appears to have reactive airway. Will investigate for potential pneumonia though she has already been taking azithromycin. Bronchitis I suppose is diagnosis of exclusion here; with wheeze or reactive airway. Screen for COVID, RSV. Would anticipate initiating treatment with steroid. Could have pneumothorax or pulmonary embolus. Chest x-ray independently reviewed by me with some mild congestion. No clear infiltrate. No pneumothorax. Placed on 2 L oxygen nasal cannula. Was given a DuoNeb. Sats improved into the low 90s. On reauscultation is moving more air. Still some expiratory wheezing. Oxygen saturations dipped again and the subsequently with given an albuterol nebulization. During this course also received 80 mg of prednisone. Radiology over-read of chest x-ray below INDICATION: Hypoxia TECHNIQUE: Chest radiograph 2 views COMPARISON: 08/30/2022 FINDINGS: The sensitivity and specificity of the exam are moderately limited by the patient`s body habitus. Mediastinum: The mediastinum is normal in appearance. The heart silhouette is normal in size and morphology. Lung: Both lungs are unremarkable in appearance. No sign of pleural effusion seen. No pneumothorax is identified. Bone and Soft tissue: Unremarkable for age. IMPRESSION: 1. No acute cardiopulmonary disease is seen. Dictated by: Adalid Hogue MD @ 07/07/2025 20:50:16 Overall was improved with stable oxygenation in the low 90s; monitor throughout time in the emergency department. Feeling better she was very eager to depart the emergency department. See patient discharge plan for further discussion I am relieved you are feeling better. Consider taking a couple puffs of your albuterol regularly 3 times daily over the next few days. Starting tomorrow take 40 mg of prednisone daily over the next 4 days. Consider sleeping under the mist of a cool mist humidifier. Can be stimulating, but pseudoephedrine can be further helpful for drying/decongestion. Return for persistent and increasing shortness of breath, chest pain, new fever. Otherwise follow-up for your CT imaging as planned. Medical Records Medical records reviewed: Yes I reviewed the patient's medical records Lab Data Lab results reviewed: Yes I reviewed the patient's lab results Labs: Lab Results 07/07/25 Range/Units 20:13 SARS-CoV-2 (PCR) Negative SARS-CoV-2 (Negative) Influenza Type A (PCR) Negative PCR FLU A (Negative) Influenza Type B (PCR) Negative PCR FLU B (Negative) RSV (PCR) Negative PCR RSV (Negative) Discharge Plan Discharge Clinical Impression: Bronchitis, Wheeze, URI (upper respiratory infection) Patient Disposition: Home w/ Parent or Adult Condition: Improved Additional Instructions: I am relieved you are feeling better. Consider taking a couple puffs of your albuterol regularly 3 times daily over the next few days. Starting tomorrow take 40 mg of prednisone daily over the next 4 days. Consider sleeping under the mist of a cool mist humidifier. Can be stimulating, but pseudoephedrine can be further helpful for drying/decongestion. Return for persistent and increasing shortness of breath, chest pain, new fever. Otherwise follow-up for your CT imaging as planned. Prescriptions: No Action lisinopril 30 mg tablet 30 mg PO DAILY Macular Vitamin 500-5-1 mcg-mg-mg tablet PO calcium carbonate-vitamin D2 600 mg calcium- 200 unit tablet PO levothyroxine 88 mcg tablet 88 mcg PO QDAY Qty: 90 1RF pravastatin 40 mg tablet 40 mg PO HS Qty: 90 1RF cholecalciferol (vitamin D3) 50 mcg (2,000 unit) capsule 50 mcg PO DAILY hydrochlorothiazide 25 mg tablet 25 mg PO DAILY Mounjaro 7.5 mg/0.5 mL pen injector 7.5 mg subcut QWEEK Qty: 2 2RF Mounjaro 10 mg/0.5 mL pen injector 10 mg subcut QWEEK Qty: 2 0RF Follow Up/Referrals: Alvina France PA-C [Primary Care Provider, Family Practice] Stand Alone Forms: [facility] Info Instructions
--- NOTE | 2025-07-07 20:13 | CRLHL7_ITS ---
For Patients: As a result of the Cures Act, medical imaging exams and procedure reports are released immediately into your electronic medical record. You may view this report before your referring provider. If you have questions, please contact your health care provider. INDICATION: Hypoxia TECHNIQUE: Chest radiograph 2 views COMPARISON: 08/30/2022 FINDINGS: The sensitivity and specificity of the exam are moderately limited by the patient`s body habitus. Mediastinum: The mediastinum is normal in appearance. The heart silhouette is normal in size and morphology. Lung: Both lungs are unremarkable in appearance. No sign of pleural effusion seen. No pneumothorax is identified. Bone and Soft tissue: Unremarkable for age. IMPRESSION: 1. No acute cardiopulmonary disease is seen. Dictated by: Adalid Hogue MD @ 07/07/2025 20:50:16 (Electronically Signed)
[2025-07-07 20:47] VITALS: O2SAT 87; O2SAT 92
[2025-07-07] MEDS: IPRAT-ALBUT 0.5-2.5 MG/3 ML NEB 1 NEB IH (20:53)
[2025-07-07 21:17] LABS: PCR FLU A Negative PCR FLU A (Negative); PCR FLU B Negative PCR FLU B (Negative); PCR RSV Negative PCR RSV (Negative); SARS PCR* Negative SARS-CoV-2 (Negative)
[2025-07-07 21:39] VITALS: PULSE 86; O2SAT 93
[2025-07-07 21:45] VITALS: PULSE 85; O2SAT 92
[2025-07-07] MEDS: ALBUTEROL SULFATE 2.5 MG/3 ML VIAL.NEB NEB (22:26)
[2025-07-07 22:54] VITALS: PULSE 90; RESP 20
== END 2025-07-07 22:57 | disposition home or self-care (01) ==
PROVIDERS: Emergency Provider Family Medicine; PCP Physician Assistant Medical
DX: J06.9 Acute upper respiratory infection, unspecified (principal); J40 Bronchitis, not specified as acute or chronic
CPT/HCPCS: 71046; 87631; 94640; 94761; 99284; J7512

== ENCOUNTER 2025-07-18 10:33 | Outpatient (CLI) | payer MEDICARE, SELFPAY ==
--- NOTE | 2025-07-18 11:00 | CRLHL7_ITS ---
For Patients: As a result of the Century Cures Act, medical imaging exams and procedure reports are released immediately into your electronic medical record. You may view this report before your referring provider. If you have questions, please contact your health care provider. Indication: Chronic sinusitis Technique: Performed without IV contrast Comparison: None available Findings: Frontal sinuses: Clear. Ethmoid sinuses: Clear. Maxillary sinuses: Small mucous retention cyst left maxillary sinus. Mild mucosal thickening both maxillary sinuses. The maxillary sinus drainage pathways are patent on both sides. Sphenoid sinuses: Mild mucosal thickening within the left sphenoid sinus. Clear right sphenoid sinus. Patent sphenoethmoidal recesses. Nasal Cavity: Rightward curvature of the nasal septum. 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 No nasal polyps. Generalized cortical atrophy. Patent middle ear cavities and mastoid air cells. Impression: 1. Mild bilateral maxillary and left sphenoid sinus disease. 2. Rightward curvature of the nasal septum with bilateral middle turbinate maicol bullosa. Please note that all CT scans at this facility use dose modulation, iterative reconstruction, and/or weight-based dosing when appropriate to reduce radiation dose to as low as reasonably achievable. Dictated by George Mendoza MD @ 07/18/2025 1:04:23 PM (Electronically Signed)
== END 2025-07-18 10:34 | disposition home or self-care (01) ==
LOC: CT 10:33
PROVIDERS: PCP Physician Assistant Medical; Visit Provider Otolaryngology
DX: J32.9 Chronic sinusitis, unspecified (principal); J32.0 Chronic maxillary sinusitis; J34.2 Deviated nasal septum
CPT/HCPCS: 70486

== ENCOUNTER 2025-07-25 16:21 | Outpatient (CLI) | payer MEDICARE, SELFPAY ==
--- NOTE | 2025-07-25 16:40 | CRLHL7_ITS ---
For Patients: As a result of the Century Cures Act, medical imaging exams and procedure reports are released immediately into your electronic medical record. You may view this report before your referring provider. If you have questions, please contact your health care provider. INDICATION: BILATERAL SCREENING MAMMOGRAM, ASYMPTOMATIC 69 Y/O FEMALE COMPARISON: 07/12/2024, 07/06/2023, 07/02/2022 TECHNIQUE: Digital mammogram in CC and MLO projections including computer-aided detection (CAD) and tomosynthesis. BREAST COMPOSITION: The breasts are almost entirely fatty. FINDINGS: No suspicious findings. ASSESSMENT: BI-RADS 2 Benign RECOMMENDATION: Annual screening mammogram. A lay language report of this examination will be provided to the patient. Dictated by: George Mendoza MD @ 07/27/2025 10:56:42 (Electronically Signed)
== END 2025-07-25 16:22 | disposition home or self-care (01) ==
LOC: MAMMO 16:22
PROVIDERS: PCP Physician Assistant Medical; Visit Provider Physician Assistant Medical
DX: Z12.31 Encounter for screening mammogram for malignant neoplasm of breast (principal)
CPT/HCPCS: 77063; 77067

== ENCOUNTER 2025-07-31 10:07 | Outpatient (CLI) | payer MEDICARE, SELFPAY | END 2025-07-31 10:08 | disposition home or self-care (01) | LOC: LKVREF 10:08 | PROVIDERS: PCP Physician Assistant Medical; Visit Provider Physician Assistant Medical | DX: E03.9 Hypothyroidism, unspecified (principal) | CPT/HCPCS: 84443 ==

== ENCOUNTER 2025-09-27 14:52 | Outpatient (CLI) | payer MEDICARE, SELFPAY ==
--- NOTE | 2025-09-27 15:30 | CRLHL7_ITS ---
For Patients: As a result of the Century Cures Act, medical imaging exams and procedure reports are released immediately into your electronic medical record. You may view this report before your referring provider. If you have questions, please contact your health care provider. XR DXA Bone Mineral Density (BMD) Reason for exam: Postmenopausal. Screening for osteoporosis. Current height (in): 63.0. Weight (lb): 230.0. Menopause age: 35. Ethnicity: White. 1. Have you had a previous hip or vertebral fracture? No. 2. Have you had any fractures during your adult life which did not result from significant trauma (e.g., auto accident)? No. 3. Did either of your parents have a hip fracture? No. 4. Do you smoke? No. 5. Have you ever taken Glucocorticoids? Yes. 6. Do you have rheumatoid arthritis? No. 7. Do you have secondary osteoporosis? No. 8. Do you drink 3 or more alcoholic drinks per day? No. 9. Are you being treated for osteoporosis? No. 10. Have you ever taken any of the following medications: Actonel, Evista, Fosamax, Miacalcin, Reclast, Boniva, Forteo, HRT (i.e. estrogen/hormone therapy), Protelos, Prolia, Vitamin D, Calcium, other ??? please specify. ANSWER: Yes, vitamin D, calcium. 11. Do you have any of the following medical conditions: Anorexia or bulimia, asthma or emphysema, end stage renal disease, hyperparathyroidism, any seizure disorders, cancer, inflammatory bowel diseases, hysterectomy, other ??? please specify. ANSWER: Yes, hyperparathyroidism, hysterectomy. 12. What was your maximum height (inches)? 63. 13. Do you perform weight bearing exercise regularly? No. 14. Do you regularly consume dairy products? Yes. 15. Do you drink caffeinated beverages? Yes. 16. At what age did your period start? 9. 17. Are you premenopausal? No. 18. How many full term pregnancies have you had? 2. 19. Have you ever missed your period for more than 6 months in a row (not including or menopause)? No. TECHNIQUE: Bone mineral density study was performed using the [employer]. FINDINGS: The results of the study expressed as bone mineral density (BMD) are as follows: Lumbar spine L1 to L4: BMD: 1.153 g/cm2. T-score: 1.0. Z-score: 3.1. Neck Left: BMD: 0.800 g/cm2. T-score: -0.4. Z-score: 1.4. Right: BMD: 0.826 g/cm2. T-score: -0.2. Z-score: 1.6. Total Left: BMD: 1.065 g/cm2. T-score: 1.0. Z-score: 2.6. Right: BMD: 1.049 g/cm2. T-score: 0.9. Z-score: 2.4. IMPRESSION: Normal bone density. George Mendoza M.D. Diagnostic Radiologist [email or web address] bM/Dictated by: George Mendoza MD @ 09/27/2025 3:45:00 PM (Electronically Signed)
== END 2025-09-27 14:53 | disposition home or self-care (01) ==
LOC: RAD 14:53
PROVIDERS: PCP Physician Assistant Medical; Visit Provider Physician Assistant Medical
DX: Z13.820 Encounter for screening for osteoporosis (principal); Z78.0 Asymptomatic menopausal state
CPT/HCPCS: 77080